=== PATIENT | male | born 2000 | race Caucasian/White ===

== ENCOUNTER 2019-02-07 17:23 | Emergency (ER) | payer SELFPAY ==
[~2019-02-07] VITALS: Ht 177.8 cm; Wt 95.3 kg
[2019-02-07] MEDS ORDERED: RT-ALBUTEROL/IPRATROPIUM 3 ML (DUONEB) VIAL INH ONE (18:15)
--- NOTE | 2019-02-07 18:15 | ED Cough/URI ---
General Chief Complaint: Respiratory Problems Stated Complaint: VOMITING, FATIGUE, DIZZY, HEAVY CHEST Nursing Triage Note: PT CO OF HX ASTHMA HAS BEEN SICK SINCE SINCE 11/24/18, COUGHING UP YELLOW PHELGM. SOMETIMES HAS SOA.DENIES FEVER STATES TAKES ALBUTEROL NEB AT HOME COUPLE TIMES A DAY Sepsis Screen: No Definite Risk Source: patient Exam Limitations: no limitations History of Present Illness Date Seen by Provider: Feb 07, 2019 Time Seen by Provider: 18:13 Initial Comments To ER with about a 1 month history of intermittent chest pains, shortness of breath, fatigue. Has asthma, takes albuterol nebulizer at home twice a day. Sometimes has a cough productive of blood-tinged sputum Timing/Duration: constant Severity/Quality: productive cough Associated Symptoms: cough, shortness of breath Allergies and Home Medications Allergies Coded Allergies: No Known Drug Allergies (Unverified , 02/07/19) Patient Home Medication List Home Medication List Reviewed: Yes Review of Systems Review of Systems Constitutional: see HPI EENTM: see HPI Respiratory: see HPI, cough Cardiovascular: no symptoms reported Genitourinary: no symptoms reported Musculoskeletal: no symptoms reported Skin: no symptoms reported Psychiatric/Neurological: No Symptoms Reported Hematologic/Lymphatic: No Symptoms Reported Past Cwieepb-Ynqxfc-Oqjlzw Hx Patient Social History Alcohol Use: Denies Use Recreational Drug Use: No Smoking Status: Current Everyday Smoker Type Used: Cigarettes Recent Foreign Travel: No Contact w/Someone Who Travel: No Recent Infectious Disease Expo: No Recent Hopitalizations: No Seasonal Allergies Seasonal Allergies: No Past Medical History Surgeries: Yes Appendectomy Respiratory: Yes Asthma Integumentary: No Physical Exam Vital Signs - First Documented 02/07/19 02/07/19 17:30 18:33 Temp 97.9 Pulse 85 Resp 18 B/P (MAP) 124/79 (94) Pulse Ox 97 O2 Delivery Room Air Capillary Refill : Less Than 3 Seconds Height: 5'10.00" Weight: 210lbs. oz. 95.787037tx; BMI Method:Stated General Appearance: WD/WN, no apparent distress Eyes: Bilateral Eye Normal Inspection, Bilateral Eye PERRL, Bilateral Eye EOMI HEENT: PERRL/EOMI, normal ENT inspection, other (tonsillar enlargement) Neck: non-tender, full range of motion; No lymphadenopathy (R), No lymphaden opathy (L) Respiratory: no respiratory distress, no accessory muscle use Cardiovascular: regular rate, rhythm, no murmur Gastrointestinal: normal bowel sounds, non tender, soft Neurologic/Psychiatric: alert, normal mood/affect, oriented x 3 Skin: normal color, warm/dry Progress/Results/Core Measures Suspected Sepsis Recent Fever Within 48 Hours: No Infection Criteria Present: None New/Unexplained Altered Menta: No Sepsis Screen: No Definite Risk SIRS Temperature:97.9 Pulse: 85 Respiratory Rate: 18 Laboratory Tests 02/07/19 18:25: White Blood Count 6.5 Blood Pressure 124 /79 Mean: 94 Laboratory Tests 02/07/19 18:25: Creatinine 1.10, Platelet Count 299, Total Bilirubin 0.3 Results/Orders Lab Results Laboratory Tests Test 02/07/19 18:25 Range/Units White Blood Count 6.5 4.3-11.0 10^3/uL Red Blood Count 5.49 4.35-5.85 10^6/uL Hemoglobin 15.8 13.3-17.7 G/DL Hematocrit 45 40-54 % Mean Corpuscular Volume 82 80-99 FL Mean Corpuscular Hemoglobin 29 25-34 PG Mean Corpuscular Hemoglobin Concent 35 32-36 G/DL Red Cell Distribution Width 13.6 10.0-14.5 % Platelet Count 299 130-400 10^3/uL Mean Platelet Volume 10.8 H 7.4-10.4 FL Neutrophils (%) (Auto) 60 42-75 % Lymphocytes (%) (Auto) 20 12-44 % Monocytes (%) (Auto) 15 H 0-12 % Eosinophils (%) (Auto) 5 0-10 % Basophils (%) (Auto) 1 0-10 % Neutrophils # (Auto) 3.9 1.8-7.8 X 10^3 Lymphocytes # (Auto) 1.3 1.0-4.0 X 10^3 Monocytes # (Auto) 1.0 0.0-1.0 X 10^3 Eosinophils # (Auto) 0.3 0.0-0.3 10^3/uL Basophils # (Auto) 0.0 0.0-0.1 10^3/uL D-Dimer < 0.27 0.00-0.49 UG/ML Sodium Level 141 135-145 MMOL/L Potassium Level 4.0 3.6-5.0 MMOL/L Chloride Level 108 H 98-107 MMOL/L Carbon Dioxide Level 21 21-32 MMOL/L Anion Gap 12 5-14 MMOL/L Blood Urea Nitrogen 13 7-18 MG/DL Creatinine 1.10 0.60-1.30 MG/DL Estimat Glomerular Filtration Rate > 60 BUN/Creatinine Ratio 12 Glucose Level 83 70-105 MG/DL Calcium Level 9.3 8.5-10.1 MG/DL Corrected Calcium 9.0 8.5-10.1 MG/DL Magnesium Level 2.1 1.6-2.4 MG/DL Total Bilirubin 0.3 0.1-1.0 MG/DL Aspartate Amino Transf (AST/SGOT) 18 5-34 U/L Alanine Aminotransferase (ALT/SGPT) 26 0-55 U/L Alkaline Phosphatase 60 40-136 U/L C-Reactive Protein High Sensitivity 1.00 H 0.00-0.50 MG/DL Total Protein 7.0 6.4-8.2 GM/DL Albumin 4.4 3.2-4.5 GM/DL My Orders Orders - NETO BARRIOS APRN Cbc With Automated Diff (02/07/19 18:06) Comprehensive Metabolic Panel (02/07/19 18:06) Fibrin Degradation Products (02/07/19 18:06) Ekg Tracing (02/07/19 18:06) Magnesium (02/07/19 18:06) Chest Pa/Lat (2 View) (02/07/19 18:06) Hs C Reactive Protein (02/07/19 18:06) Albuterol/Ipra Inhalation Soln (Duoneb I (02/07/19 18:15) Svn Small Volume Nebulizer (02/07/19 18:06) Medications Given in ED Current Medications Medications Dose Ordered Sig/Annie Route Start Time Stop Time Status Last Admin Dose Admin Albuterol/ Ipratropium 3 ml ONCE ONCE INH 02/07/19 18:15 02/07/19 18:16 DC 02/07/19 18:13 3 ML Vital Signs/I&O 02/07/19 02/07/19 17:30 18:33 Temp 97.9 Pulse 85 Resp 18 B/P (MAP) 124/79 (94) Pulse Ox 97 96 O2 Delivery Room Air Capillary Refill : Less Than 3 Seconds Blood Pressure Mean: 94 Departure Impression Primary Impression: Asthma Qualified Codes: J45.909 - Unspecified asthma, uncomplicated Additional Impression: Bronchitis Disposition: HOME, SELF-CARE Condition: Stable Departure-Patient Inst. Decision time for Depature: 18:58 Referrals: NO,LOCAL PHYSICIAN (PCP/Family) Primary Care Physician Patient Instructions: Asthma, Adult (DC), Acute Bronchitis Add. Discharge Instructions: 1. Return to ER for any concerns 2. Steroids antibiotics as directed 3. Follow-up with your doctor next week 4. All discharge instructions reviewed with patient and/or family. Voiced under standing. Scripts Azithromycin (Azithromycin) 250 Mg Tablet 250 MG PO DAILY, #4 TAB 0 Refills Prov: NETO BARRIOS APRN 02/07/19 Azithromycin (Azithromycin) 250 Mg Tablet 250 MG PO UD, #6 TAB TAKE 2 TABLETS ON DAY ONE THEN TAKE 1 TABLET DAILY FOR FOUR MORE DAYS Prov: NETO BARRIOS APRN 02/07/19 NETO BARRIOS APRN Feb 07, 2019 18:15
[2019-02-07 18:30] LABS: BASOPHILS % (AUTO) 1 % (0-10); EOSINOPHILS # (AUTO) 0.3 10^3/uL (0.0-0.3); EOSINOPHILS % (AUTO) 5 % (0-10); HEMATOCRIT 45 % (40-54); HEMOGLOBIN 15.8 G/DL (13.3-17.7); LYMPHOCYTES # (AUTO) 1.3 X 10^3 (1.0-4.0); LYMPHOCYTES % (AUTO) 20 % (12-44); MEAN CORPUSCULAR HEMOGLOBIN 29 PG (25-34); MEAN CORPUSCULAR HGB CONC 35 G/DL (32-36); MEAN CORPUSCULAR VOLUME 82 FL (80-99); MEAN PLATELET VOLUME 10.8 FL (7.4-10.4); MONOCYTES % (AUTO) 15 % (0-12); NEUTROPHILS # (AUTO) 3.9 X 10^3 (1.8-7.8); NEUTROPHILS % (AUTO) 60 % (42-75); PLATELET COUNT 299 10^3/uL (130-400); RED CELL DISTRIBUTION WIDTH 13.6 % (10.0-14.5); WHITE BLOOD COUNT 6.5 10^3/uL (4.3-11.0)
--- NOTE | 2019-02-07 18:49 | Diagnostic Imaging Report ---
INDICATION: Intermittent chest pain. Nausea and vomiting. FINDINGS: The lungs appear clear without focal infiltrate or consolidation. There is no effusion. There is no pneumothorax. Heart size and mediastinal contours are appropriate. The pulmonary vascularity appears normal. There is no acute or suspicious osseous abnormality. IMPRESSION: 1. No radiographic evidence of an acute cardiopulmonary process Dictated by: Dictated on workstation # [id number]
[2019-02-07 18:53] LABS: ALANINE AMINOTRANSFERASE 26 U/L (0-55); ALBUMIN 4.4 GM/DL (3.2-4.5); ALKALINE PHOSPHATASE 60 U/L (40-136); BILIRUBIN,TOTAL 0.3 MG/DL (0.1-1.0); BUN/CREATININE RATIO 12; CALCIUM 9.3 MG/DL (8.5-10.1); CARBON DIOXIDE 21 MMOL/L (21-32); CHLORIDE 108 MMOL/L (98-107); GFR ESTIMATED > 60; GLUCOSE 83 MG/DL (70-105); MAGNESIUM 2.1 MG/DL (1.6-2.4); SODIUM 141 MMOL/L (135-145)
[2019-02-07] MEDS ORDERED: AZIT250T12 PO ×2 (18:59)
[2019-02-07] MEDS ORDERED: predniSONE 20 MG TAB PO ONE (19:00)
[2019-02-07] MEDS ORDERED: AZITHROMYCIN 250 MG TAB (ZITHROMAX) PO SCH (19:00)
[2019-02-07 19:04] VITALS: BP 127/81
== END 2019-02-07 19:04 | disposition home or self-care (01) ==
LOC: ER 17:27
DX: J45.909 Unspecified asthma, uncomplicated (principal); F17.210 Nicotine dependence, cigarettes, uncomplicated; Z90.49 Acquired absence of other specified parts of digestive tract
CPT/HCPCS: 36415; 71046; 80053; 83735; 85025; 85379; 86141; 93005; 94640

== ENCOUNTER 2019-03-16 02:16 | Emergency (ER) | payer SELFPAY ==
[~2019-03-16] VITALS: Ht 175 cm; Wt 84.0 kg
[~2019-03-16 02:16] MED LIST: AZIT250T12 PO
[2019-03-16] MEDS ORDERED: RT-ALBUTEROL SULF 2.5 MG/3 ML PRE-MIX VIAL INH STA (03:11)
[2019-03-16] MEDS ORDERED: methylPREDNISolone 125 MG (Solu-MEDROL) VIAL IV STA (03:11)
[2019-03-16] MEDS ORDERED: DEXAMETHASONE 4 MG/ML SDV (DECADRON) ONE (03:14)
[2019-03-16] MEDS ORDERED: RT-ALBUTEROL/IPRATROPIUM 3 ML (DUONEB) VIAL ONE (03:14)
[2019-03-16] MEDS ORDERED: RT-ALBUTEROL SULF 2.5 MG/3 ML PRE-MIX VIAL ONE (03:14)
[2019-03-16] MEDS ORDERED: DEXAMETHASONE 4 MG/ML SDV (DECADRON) IH ONE (03:15)
[2019-03-16] MEDS ORDERED: RT-ALBUTEROL/IPRATROPIUM 3 ML (DUONEB) VIAL INH ONE (03:15)
[2019-03-16 03:17] LABS: BASOPHILS # (AUTO) 0.1 10^3/uL (0.0-0.1); BASOPHILS % (AUTO) 1 % (0-10); EOSINOPHILS # (AUTO) 0.5 10^3/uL (0.0-0.3); EOSINOPHILS % (AUTO) 5 % (0-10); HEMATOCRIT 47 % (40-54); HEMOGLOBIN 16.6 G/DL (13.3-17.7); LYMPHOCYTES % (AUTO) 19 % (12-44); MEAN CORPUSCULAR HEMOGLOBIN 28 PG (25-34); MEAN CORPUSCULAR HGB CONC 35 G/DL (32-36); MEAN CORPUSCULAR VOLUME 80 FL (80-99); MEAN PLATELET VOLUME 10.4 FL (7.4-10.4); MONOCYTES # (AUTO) 0.9 X 10^3 (0.0-1.0); MONOCYTES % (AUTO) 8 % (0-12); NEUTROPHILS # (AUTO) 7.3 X 10^3 (1.8-7.8); NEUTROPHILS % (AUTO) 68 % (42-75); PLATELET COUNT 343 10^3/uL (130-400); RED CELL DISTRIBUTION WIDTH 13.6 % (10.0-14.5); WHITE BLOOD COUNT 10.7 10^3/uL (4.3-11.0)
[2019-03-16 03:31] LABS: ALANINE AMINOTRANSFERASE 32 U/L (0-55); ALBUMIN 4.3 GM/DL (3.2-4.5); ALKALINE PHOSPHATASE 75 U/L (40-136); BILIRUBIN,TOTAL 0.3 MG/DL (0.1-1.0); BUN/CREATININE RATIO 10; CALCIUM 9.5 MG/DL (8.5-10.1); CARBON DIOXIDE 22 MMOL/L (21-32); CHLORIDE 106 MMOL/L (98-107); CREATININE SERUM 1.14 MG/DL (0.60-1.30); GFR ESTIMATED > 60; GLUCOSE 80 MG/DL (70-105); POTASSIUM 3.9 MMOL/L (3.6-5.0); SODIUM 141 MMOL/L (135-145); TOTAL PROTEIN 7.1 GM/DL (6.4-8.2)
[2019-03-16] MEDS ORDERED: PRED5TAB PO (04:27)
[2019-03-16] MEDS ORDERED: IPRA3AMP31 IH (04:27)
[2019-03-16] MEDS ORDERED: BUDE1AMP IH (04:27)
--- NOTE | 2019-03-16 04:28 | ED Respiratory ---
General Chief Complaint: Respiratory Problems Stated Complaint: SOA Nursing Triage Note: PT PRESENTS TO ROOM 9 FROM HOME C/O SOA W/ EXERTION THAT ONSET ONE MONTH AGO INTERMITTENTLY INCREASING IN SEVERITY. PT STATES HE IS A LONG STANDING ASTHMATIC, STATES HES BEEN USING HIS ALBUTEROL NEBULIZER EVERY TWO HOURS Source: patient History of Present Illness Date Seen by Provider: Mar 16, 2019 Time Seen by Provider: 02:48 Allergies and Home Medications Allergies Coded Allergies: No Known Drug Allergies (Unverified , 02/07/19) Home Medications Azithromycin 250 Mg Tablet, 250 MG PO UD TAKE 2 TABLETS ON DAY ONE THEN TAKE 1 TABLET DAILY FOR FOUR MORE DAYS Prescribed by: NETO BARRIOS on 02/07/191858 Azithromycin 250 Mg Tablet, 250 MG PO DAILY Prescribed by: NETO BARRIOS on 02/07/191858 Past Qpjdxar-Emrgqs-Nccteo Hx Patient Social History Alcohol Use: Denies Use Recreational Drug Use: No Smoking Status: Former Smoker Type Used: Cigarettes Former Smoker, Quit: Mar 13, 2019 2nd Hand Smoke Exposure: No Recent Foreign Travel: No Contact w/Someone Who Travel: No Recent Infectious Disease Expo: No Recent Hopitalizations: No Immunizations Up To Date Tetanus Booster (TDap): Unknown PED Vaccines UTD: Yes Seasonal Allergies Seasonal Allergies: No Past Medical History Surgeries: Yes Appendectomy Respiratory: Yes Asthma Integumentary: No Physical Exam Vital Signs - First Documented 03/16/19 02:44 Temp 37.5 Pulse 87 Resp 20 B/P (MAP) 135/96 (109) Pulse Ox 96 O2 Delivery Room Air Capillary Refill : Less Than 3 Seconds Height: 5'10.00" Weight: 210lbs. oz. 95.331155tz; 27.00 BMI Method:Stated Progress/Results/Core Measures Suspected Sepsis Recent Fever Within 48 Hours: No Infection Criteria Present: Suspected New Infection New/Unexplained Altered Menta: No Sepsis Screen: No Definite Risk SIRS Temperature: Pulse: 87 Respiratory Rate: 20 Laboratory Tests 03/16/19 03:02: White Blood Count 10.7 Blood Pressure 135 /96 Mean: 109 Laboratory Tests 03/16/19 03:02: Creatinine 1.14, Platelet Count 343, Total Bilirubin 0.3 Results/Orders Lab Results Laboratory Tests Test 03/16/19 03:02 Range/Units White Blood Count 10.7 4.3-11.0 10^3/uL Red Blood Count 5.90 H 4.35-5.85 10^6/uL Hemoglobin 16.6 13.3-17.7 G/DL Hematocrit 47 40-54 % Mean Corpuscular Volume 80 80-99 FL Mean Corpuscular Hemoglobin 28 25-34 PG Mean Corpuscular Hemoglobin Concent 35 32-36 G/DL Red Cell Distribution Width 13.6 10.0-14.5 % Platelet Count 343 130-400 10^3/uL Mean Platelet Volume 10.4 7.4-10.4 FL Neutrophils (%) (Auto) 68 42-75 % Lymphocytes (%) (Auto) 19 12-44 % Monocytes (%) (Auto) 8 0-12 % Eosinophils (%) (Auto) 5 0-10 % Basophils (%) (Auto) 1 0-10 % Neutrophils # (Auto) 7.3 1.8-7.8 X 10^3 Lymphocytes # (Auto) 2.0 1.0-4.0 X 10^3 Monocytes # (Auto) 0.9 0.0-1.0 X 10^3 Eosinophils # (Auto) 0.5 H 0.0-0.3 10^3/uL Basophils # (Auto) 0.1 0.0-0.1 10^3/uL Sodium Level 141 135-145 MMOL/L Potassium Level 3.9 3.6-5.0 MMOL/L Chloride Level 106 98-107 MMOL/L Carbon Dioxide Level 22 21-32 MMOL/L Anion Gap 13 5-14 MMOL/L Blood Urea Nitrogen 11 7-18 MG/DL Creatinine 1.14 0.60-1.30 MG/DL Estimat Glomerular Filtration Rate > 60 BUN/Creatinine Ratio 10 Glucose Level 80 70-105 MG/DL Calcium Level 9.5 8.5-10.1 MG/DL Corrected Calcium 9.3 8.5-10.1 MG/DL Magnesium Level 2.0 1.6-2.4 MG/DL Total Bilirubin 0.3 0.1-1.0 MG/DL Aspartate Amino Transf (AST/SGOT) 20 5-34 U/L Alanine Aminotransferase (ALT/SGPT) 32 0-55 U/L Alkaline Phosphatase 75 40-136 U/L Total Protein 7.1 6.4-8.2 GM/DL Albumin 4.3 3.2-4.5 GM/DL Serum Alcohol < 10 <10 MG/DL Micro Results Microbiology 03/16/19 Influenza Types A,B Antigen (MARYLIN) - Final, Complete My Orders Orders - BRENT EPPS DO Ed Iv/Invasive Line Start (03/16/19 03:11) Monitor-Rhythm Ecg Trace Only (03/16/19 03:11) Alcohol (03/16/19 03:11) Cbc With Automated Diff (03/16/19 03:11) Comprehensive Metabolic Panel (03/16/19 03:11) Drug Screen Stat (Urine) (03/16/19 03:11) Magnesium (03/16/19 03:11) Ua Culture If Indicated (03/16/19 03:11) Influenza A And B Antigens (03/16/19 03:11) Chest Pa/Lat (2 View) (03/16/19 03:11) Albuterol Pre-Mix Nebs (Rt) (Proventil (03/16/19 03:11) Albuterol/Ipra Inhalation Soln (Duoneb I (03/16/19 03:15) Dexamethasone Injection (Decadron Inject (03/16/19 03:15) Rt Request For Service (03/16/19 03:11) Methylprednisolone Sod Succ (Solu-Medrol (03/16/19 03:11) Svn Small Volume Nebulizer (03/16/19 03:11) Svn Small Volume Nebulizer (03/16/19 03:11) Dexamethasone Injection (Decadron Inject (03/16/19 03:14) Albuterol Pre-Mix Nebs (Rt) (Proventil (03/16/19 03:14) Albuterol/Ipra Inhalation Soln (Duoneb I (03/16/19 03:14) Medications Given in ED Current Medications Medications Dose Ordered Sig/Annie Route Start Time Stop Time Status Last Admin Dose Admin Albuterol/ Ipratropium 3 ml ONCE ONCE INH 03/16/19 03:15 03/16/19 03:16 DC 03/16/19 03:20 3 ML Dexamethasone Sodium Phosphate 20 mg ONCE ONCE IH 03/16/19 03:15 03/16/19 03:16 DC 03/16/19 03:20 20 MG Vital Signs/I&O 03/16/19 03/16/19 02:44 03:23 Temp 37.5 Pulse 87 Resp 20 B/P (MAP) 135/96 (109) Pulse Ox 96 95 O2 Delivery Room Air Room Air Capillary Refill : Less Than 3 Seconds Blood Pressure Mean: 109 Diagnostic Imaging Comments CXR--NO ACUTE PROCESS, PENDING RADIOLOGIST REVIEW Reviewed: Reviewed by Me Departure Impression Primary Impression: Asthma with acute exacerbation in adult Disposition: HOME, SELF-CARE Condition: Improved Departure-Patient Inst. Referrals: NEYMAR LICONA,LOCAL PHYSICIAN (PCP) Primary Care Physician Patient Instructions: Avoiding Asthma Triggers, Asthma, Adult (DC) Add. Discharge Instructions: USE YOUR DUO NEB BY NEBULIZER EVERY 4 HOURS NEEDED USE PULMICORT NEBULIZER TWICE A DAY EVERY DAY FOR ASTHMA PREVENTION/MAINTENANCE FOLLOW UP WITH LOCAL DRKennedi OF CHOICE THIS WEEK AND ESTABLISH CARE FOR PRIMARY CARE DRKennedi FOLLOW UP WITH DR. LICONA, TRANSPLANTER, FOR YOUR ASTHMA All discharge instructions reviewed with patient and/or family. Voiced understanding. 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
[2019-03-16 04:36] LABS: BILIRUBIN,URINE NEGATIVE (NEGATIVE); CLARITY,URINE CLEAR; COLOR,URINE YELLOW; GLUCOSE, URINE (UA) NEGATIVE (NEGATIVE); KETONES,URINE 1+ (NEGATIVE); LEUKOCYTE ESTERASE ,URINE NEGATIVE (NEGATIVE); NITRITE,URINE NEGATIVE (NEGATIVE); PH,URINE 6 (5-9); PROTEIN,URINE 1+ (NEGATIVE); UROBILINOGEN,URINE NORMAL (NORMAL)
[2019-03-16 04:50] LABS: AMPHETAMINE SCREEN, URINE NEGATIVE (NEGATIVE); BARBITURATE SCREEN URINE NEGATIVE (NEGATIVE); BENZODIAZEPINES SCREEN URINE NEGATIVE (NEGATIVE); CANNABINOID SCREEN, URINE NEGATIVE (NEGATIVE); COCAINE SCREEN URINE NEGATIVE (NEGATIVE); METHADONE STAT NEGATIVE (NEGATIVE); METHAMPHETAMINE SCREEN URINE S NEGATIVE (NEGATIVE); OPIATE SCREEN URINE NEGATIVE (NEGATIVE); OXYCODONE STAT NEGATIVE (NEGATIVE); PROPOXYPHENE STAT NEGATIVE (NEGATIVE); TRICYCLIC ANTIDEPRESSANTS SCRE NEGATIVE (NEGATIVE)
[2019-03-16 05:00] LABS: BACTERIA,URINE FEW /HPF
[2019-03-16 05:03] VITALS: BP 130/67
--- NOTE | 2019-03-16 06:23 | Diagnostic Imaging Report ---
INDICATION: Chest pain and shortness of breath COMPARISON: 02/07/2019 FINDINGS: Frontal and lateral views of the chest demonstrate clear lungs bilaterally. The heart is normal. There is no pneumothorax. The osseous structures are normal. IMPRESSION: Negative chest Dictated by: Dictated on workstation # [id number]
== END 2019-03-16 05:03 | disposition home or self-care (01) ==
LOC: EDUNIT# 02:16 → ER 02:18
DX: J45.901 Unspecified asthma with (acute) exacerbation (principal); Z87.891 Personal history of nicotine dependence; Z90.49 Acquired absence of other specified parts of digestive tract
CPT/HCPCS: 36415; 71046; 80053; 80306; 80320; 81000; 83735; 85025; 87804; 93041; 94640

== ENCOUNTER 2019-06-29 15:11 | Emergency (ER) | payer SELFPAY ==
[~2019-06-29] VITALS: Ht 177 cm; Wt 84.0 kg
[~2019-06-29 15:11] MED LIST changes: +BUDE1AMP IH; +IPRA3AMP31 IH; +PRED5TAB PO
[2019-06-29] MEDS ORDERED: RT-ALBUTEROL/IPRATROPIUM 3 ML (DUONEB) VIAL INH ONE (15:45)
[2019-06-29] MEDS ORDERED: RX-ALBUTEROL INHALER (PROAIR) 8.5 GM IH STA (16:08)
[2019-06-29] MEDS ORDERED: IBUPROFEN 800 MG (MOTRIN) TAB PO STA (16:23)
--- NOTE | 2019-06-29 16:29 | ED Cough/URI ---
General Chief Complaint: Cough/Cold/Flu Symptoms Stated Complaint: FEVER/THROAT DISCOMFORT Nursing Triage Note: PT PRESENTS TO TRIAGE C/O COUGH AND THROAT DISCOMFORT WITH SWALLOWING THAT ONSET EARLY YESTERDAY. PT STATES HE HAD A FEVER TODAY, LAST TYLENOL DOSE AT 12:30. PT VERBALIZES A HX OF ASTMA, NOTED INCREASED WORK OF BREATHING ON EXAM. PT STATES HE USED A BREATHING TX AROUND 1330 TODAY. Sepsis Screen: No Definite Risk Source: patient Exam Limitations: no limitations History of Present Illness Date Seen by Provider: Jun 29, 2019 Time Seen by Provider: 16:12 Initial Comments Here with report of cough and congestion as well as sore throat that started yesterday. Had a fever of 103 today. He did take Tylenol this afternoon and that helped some. Also complains of body aches to the large muscle group and back. Had diarrheal illness several days ago that has resolved. Does have history of asthma but does not have an inhaler. He does smoke cigarettes. He had to leave work today because he was feeling bad. Timing/Duration: yesterday Severity/Quality: mild, dry cough Prior Episodes/Possible Cause: occasional episodes Modifying Factors: Improves With Rest Associated Symptoms: cough, fever/chills, muscle aches, nasal congestion, nasal drainage, shortness of breath, sore throat, wheezing Allergies and Home Medications Allergies Coded Allergies: No Known Drug Allergies (Unverified , 02/07/19) Home Medications Azithromycin 250 Mg Tablet, 250 MG PO UD TAKE 2 TABLETS ON DAY ONE THEN TAKE 1 TABLET DAILY FOR FOUR MORE DAYS Prescribed by: NETO BARRIOS on 02/07/191858 Azithromycin 250 Mg Tablet, 250 MG PO DAILY Prescribed by: NETO BARRIOS on 02/07/191858 Budesonide 1 Mg/2 Ml Ampul.neb, 1 MG IH BID Prescribed by: BRENT EPPS on 03/16/19426 Ipratropium/Albuterol Sulfate 3 Ml Ampul.neb, 3 ML IH Q4H PRN for SHORTNESS OF BREATH Prescribed by: BRENT EPPS on 03/16/19426 Prednisone 5 Mg Tablet, 5 MG PO UD 12 PILLS DAY 1, THEN DECREASE BY 1 PILL A DAY UNTIL GONE Prescribed by: BRENT EPPS on 03/16/19426 Patient Home Medication List Home Medication List Reviewed: Yes Review of Systems Review of Systems Constitutional: see HPI; No chills; fever EENTM: see HPI Respiratory: cough, short of breath, wheezing Cardiovascular: no symptoms reported Gastrointestinal: no symptoms reported Genitourinary: no symptoms reported Musculoskeletal: see HPI, muscle pain; No muscle weakness Skin: no symptoms reported Past Waqdmmx-Qkxydc-Fhthza Hx Past Med/Social Hx: Reviewed Nursing Past Med/Soc Hx Patient Social History Alcohol Use: Denies Use Recreational Drug Use: No Type Used: Cigarettes Former Smoker, Quit: Mar 13, 2019 2nd Hand Smoke Exposure: No Recent Foreign Travel: No Contact w/Someone Who Travel: No Recent Infectious Disease Expo: No Recent Hopitalizations: No Physical Abuse: No Sexual Abuse: No Mistreated: No Fear: No Immunizations Up To Date Tetanus Booster (TDap): Unknown PED Vaccines UTD: Yes Seasonal Allergies Seasonal Allergies: No Past Medical History Surgeries: Yes Appendectomy Respiratory: Yes Asthma Cardiac: No Neurological: No Reproductive Disorders: No Genitourinary: No Gastrointestinal: No Musculoskeletal: No Endocrine: No HEENT: No Cancer: No Psychosocial: No Integumentary: No Blood Disorders: No Family Medical History Reviewed Nursing Family Hx Physical Exam Vital Signs - First Documented 06/29/19 15:31 Temp 36.8 Pulse 90 Resp 18 B/P (MAP) 123/78 (93) Pulse Ox 96 O2 Delivery Room Air Capillary Refill : Less Than 3 Seconds Height: 5'10.00" Weight: 210lbs. oz. 95.943479ke; 26.00 BMI Method:Stated General Appearance: WD/WN, no apparent distress HEENT: PERRL/EOMI, TMs normal, pharyngeal erythema (cobblestoning), other (moderate clear rhinorrhea and erythema) Neck: full range of motion, supple, lymphadenopathy (R), lymphadenopathy (L) Respiratory: no accessory muscle use, wheezing, expiration Cardiovascular: regular rate, rhythm, no murmur Gastrointestinal: non tender, soft Neurologic/Psychiatric: alert, oriented x 3 Skin: normal color, warm/dry Progress/Results/Core Measures Suspected Sepsis Recent Fever Within 48 Hours: Yes Infection Criteria Present: Suspected New Infection New/Unexplained Altered Menta: No Sepsis Screen: No Definite Risk SIRS Temperature: Pulse: 90 Respiratory Rate: 18 Blood Pressure 123 /78 Mean: 93 Results/Orders Lab Results Laboratory Tests Test 06/29/19 15:45 Range/Units Group A Streptococcus Screen NEGATIVE NEGATIVE Micro Results Microbiology 1/27/20 Influenza Types A,B Antigen (MARYLIN) - Final, Complete My Orders Orders - BINDU MORE MD Motrin 800 Mg Po (06/29/19 16:23) Medications Given in ED Current Medications Medications Dose Ordered Sig/Annie Route Start Time Stop Time Status Last Admin Dose Admin Albuterol/ Ipratropium 3 ml ONCE ONCE INH 06/29/19 15:45 06/29/19 15:46 DC 06/29/19 16:05 3 ML Vital Signs/I&O 06/29/19 06/29/19 06/29/19 15:31 15:54 16:05 Temp 36.8 Pulse 90 Resp 18 B/P (MAP) 123/78 (93) Pulse Ox 96 94 O2 Delivery Room Air Room Air Room Air Capillary Refill : Less Than 3 Seconds Blood Pressure Mean: 93 Progress Note : Progress Note Seen and evaluated. Albuterol metered-dose inhaler given and 2 puffs given. This did resolve his wheezing. Ibuprofen 800 mg by mouth given. Influenza and rapid strep screen ordered and both were negative. Discharged home with return precautions. Patient verbalize understanding instructions and agreement with plan Departure Impression Primary Impression: Upper respiratory infection Qualified Codes: J06.9 - Acute upper respiratory infection, unspecified Additional Impression: Bronchitis Disposition: 01 HOME, SELF-CARE Condition: Improved Departure-Patient Inst. Decision time for Depature: 16:30 Referrals: NO,LOCAL PHYSICIAN (PCP/Family) Primary Care Physician Patient Instructions: Viral Upper Respiratory Infection, Adult (DC), Fever, Adult (DC), Acute Bronchitis, Adult (DC) Add. Discharge Instructions: All discharge instructions reviewed with patient and/or family. Voiced understanding. You may take Tylenol/acetaminophen 1000 mg every 8 hours as needed for fever or pain. You may take ibuprofen 600 mg every 8 hours as needed for fever or pain. You may use Afrin nasal spray or the generic, 12 hour relief, 2 sprays to each nostril twice daily for 3 days only and then stop. Do not use more than 3 days. Follow-up with your DrKennedi in a few days for recheck. Drink plenty of fluids. Return for worse pain, fever, vomiting, weakness, breathing problems or other concerns as needed. You should quit smoking. Work/School Note: Work Release Form Date Seen in the Emergency Department: Jun 29, 2019 Return to Work: Jul 01, 2019 Restrictions: Return-No Fever (24hrs) BINDU MORE MD Jun 29, 2019 16:29
[2019-06-29 16:49] VITALS: BP 123/78
== END 2019-06-29 16:50 | disposition home or self-care (01) ==
LOC: EDUNIT# 15:11 → ER 15:12
DX: J06.9 Acute upper respiratory infection, unspecified (principal); J40 Bronchitis, not specified as acute or chronic; F17.210 Nicotine dependence, cigarettes, uncomplicated; Z90.89 Acquired absence of other organs
CPT/HCPCS: 87430; 87804; 94640

== ENCOUNTER 2019-08-12 19:55 | Emergency (ER) | payer SELFPAY ==
[~2019-08-12] VITALS: Ht 177.8 cm; Wt 77.1 kg
[2019-08-12 20:06] VITALS: BP 122/70
[2019-08-12] MEDS ORDERED: AMOX-358 PO (20:23)
[2019-08-12] MEDS ORDERED: TRIA10.8 NS (20:23)
--- NOTE | 2019-08-12 20:23 | ED General ---
General Chief Complaint: General Problems/Pain Stated Complaint: MIGRAINES Nursing Triage Note: Pt amb to triage with c/o sinus pressure et headache. Pt reports onset of symptoms to be approx x2wks with increase in severity on this day. Pt denies cough, congestion, fever, or chills. A&OX4. Nursing Sepsis Screen: No Definite Risk Source of Information: Patient Exam Limitations: No Limitations History of Present Illness Date Seen by Provider: Aug 12, 2019 Time Seen by Provider: 20:20 Initial Comments 2 week history of pressure and pain between his eyes, nasal congestion with rhinorrhea/postnasal drip. No fevers or chills. Severity: Moderate Associated Systoms: Headaches Allergies and Home Medications Allergies Coded Allergies: fluticasone (Verified Allergy, Unknown, 08/12/19) salmeterol (Verified Allergy, Unknown, 08/12/19) Home Medications Amoxicillin/Potassium Clav 1 Each Tablet, 1 EACH PO BID Prescribed by: NETO BARRIOS on 08/12/192022 Azithromycin 250 Mg Tablet, 250 MG PO UD TAKE 2 TABLETS ON DAY ONE THEN TAKE 1 TABLET DAILY FOR FOUR MORE DAYS Prescribed by: NETO BARRIOS on 02/07/191858 Azithromycin 250 Mg Tablet, 250 MG PO DAILY Prescribed by: NETO BARRIOS on 02/07/191858 Budesonide 1 Mg/2 Ml Ampul.neb, 1 MG IH BID Prescribed by: BRENT EPPS on 03/16/19426 Ipratropium/Albuterol Sulfate 3 Ml Ampul.neb, 3 ML IH Q4H PRN for SHORTNESS OF BREATH Prescribed by: BRENT EPPS on 03/16/19426 Prednisone 5 Mg Tablet, 5 MG PO UD 12 PILLS DAY 1, THEN DECREASE BY 1 PILL A DAY UNTIL GONE Prescribed by: BRENT EPPS on 03/16/19426 Triamcinolone Acetonide 10.8 Ml [place], 2 SPRAY NS BID Prescribed by: NETO BARRIOS on 08/12/192022 Patient Home Medication List Home Medication List Reviewed: Yes Review of Systems Review of Systems Constitutional: see HPI EENTM: see HPI Respiratory: no symptoms reported Cardiovascular: no symptoms reported Genitourinary: no symptoms reported Musculoskeletal: no symptoms reported Skin: no symptoms reported Psychiatric/Neurological: No Symptoms Reported Hematologic/Lymphatic: No Symptoms Reported Past Qxvcfbw-Alatsx-Wzwihr Hx Patient Social History Alcohol Use: Denies Use Recreational Drug Use: No Smoking Status: Current Everyday Smoker Type Used: Cigarettes Former Smoker, Quit: Mar 13, 2019 2nd Hand Smoke Exposure: No Recent Foreign Travel: No Contact w/Someone Who Travel: No Recent Infectious Disease Expo: No Recent Hopitalizations: No Immunizations Up To Date Tetanus Booster (TDap): Unknown PED Vaccines UTD: Yes Seasonal Allergies Seasonal Allergies: No Past Medical History Surgeries: Yes Appendectomy Respiratory: Yes Asthma Cardiac: No Neurological: No Reproductive Disorders: No Genitourinary: No Gastrointestinal: No Musculoskeletal: No Endocrine: No HEENT: No Cancer: No Psychosocial: No Integumentary: No Blood Disorders: No Physical Exam Vital Signs Vital Signs - First Documented 08/12/19 20:06 Temp 36.9 Pulse 90 Resp 17 B/P (MAP) 122/70 (87) Pulse Ox 98 O2 Delivery Room Air Capillary Refill : Less Than 3 Seconds Height, Weight, BMI Height: 5'10.00" Weight: 210lbs. oz. 95.515106pi; 24.00 BMI Method:Stated General Appearance: No Apparent Distress, WD/WN Eyes: Bilateral Eye Normal Inspection, Bilateral Eye PERRL, Bilateral Eye EOMI HEENT: PERRL/EOMI, TMs Normal Neck: Full Range of Motion, Normal Inspection Respiratory: No Accessory Muscle Use, No Respiratory Distress Gastrointestinal: Non Tender, Soft Extremity: Normal Capillary Refill, Normal Inspection Neurologic/Psychiatric: Alert, Oriented x3 Skin: Normal Color, Warm/Dry Progress/Results/Core Measures Suspected Sepsis Recent Fever Within 48 Hours: No Infection Criteria Present: None New/Unexplained Altered Menta: No Sepsis Screen: No Definite Risk SIRS Temperature: Pulse: 90 Respiratory Rate: 17 Blood Pressure 122 /70 Mean: 87 Results/Orders My Orders Orders - NETO BARRIOS APRN Amoxicillin/Clavulanate Tablet (Augmenti (08/12/19 20:30) Vital Signs/I&O 08/12/19 20:06 Temp 36.9 Pulse 90 Resp 17 B/P (MAP) 122/70 (87) Pulse Ox 98 O2 Delivery Room Air Capillary Refill : Less Than 3 Seconds Blood Pressure Mean: 87 Departure Impression Primary Impression: Sinusitis Qualified Codes: J01.90 - Acute sinusitis, unspecified Disposition: 01 HOME, SELF-CARE Condition: Stable Departure-Patient Inst. Decision time for Depature: 20:21 Referrals: NO,LOCAL PHYSICIAN (PCP/Family) Primary Care Physician Patient Instructions: Sinusitis, Adult (DC) Add. Discharge Instructions: 1. Return to ER for any concerns 2. Follow-up with your doctor next week 3. Antibiotics as directed All discharge instructions reviewed with patient and/or family. Voiced understanding. Scripts Triamcinolone Acetonide (Nasacort) 10.8 Ml [place] 2 SPRAY NS BID, #1 SPRAY Prov: NETO BARRIOS APRN 08/12/19 Amoxicillin/Potassium Clav (Augmentin 875-125 Tablet) 1 Each Tablet 1 EACH PO BID, #14 TAB 0 Refills Prov: NETO BARRIOS APRN 08/12/19 Work/School Note: Work Release Form Date Seen in the Emergency Department: Aug 12, 2019 Return to Work: Aug 13, 2019 NETO BARRIOS APRN Aug 12, 2019 20:23
[2019-08-12] MEDS ORDERED: AUGMENTIN 875 MG TAB (AMOXICILLIN/CLAVULANATE) PO SCH (20:30)
--- OUTSIDE RECORDS SUMMARY | 2019-08-14 22:42 | XMS REPORT | Continuity of Care Document ---
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 concentration measurement (mass/volume) 35 g/dL 32-36 Automated erythrocyte distribution width ratio 13. 6 % 10.0- 14.5 Automated blood platelet count (count/volume) 343 10*3/uL 130-400 Automated blood platelet mean volume measurement 10.4 [foz_us] 7.4-10.4 Automated blood neutrophils/100 leukocytes 68 % 42-75 Automated blood lymphocytes/100 leukocytes 19 % 12-44 Blood monocytes/100 leukocytes 8 % 0-12 Automated blood eosinophils/100 leukocytes 5 % 0-10 Automated blood basophils/100 leukocytes 1 % 0-10 Blood neutrophils automated count (number/volume) 7.3 10*3 1.8-7.8 Blood lymphocytes automated count (number/volume) 2.0 10*3 1.0-4.0 Blood monocytes automated count (number/volume) 0. 9 10*3 0.0-1.0 Automated eosinophil count 0.5 10*3/uL 0 .0-0.3 Automated blood basophil count (count/volume) 0.1 10*3/uL 0.0-0.1 Comprehensive metabolic panel - 03/16/19 03:02 Serum or plasma sodium measurement (moles/volume) 141 mmol/L 135-145 Serum or plasma potassium measurement (moles/volume) 3.9 mmol/L 3.6-5.0 Serum or plasma chloride measurement (moles/volume) 106 mmol/L 98-107 Carbon dioxide 22 mmol/L 21-32 Serum or plasma anion gap determination (moles/volume) 13 mmol/L 5-14 Serum or plasma urea nitrogen measurement (mass/volume ) 11 mg/dL 7-18 Serum or plasma creatinine measurement (mass/volume) 1.14 mg/dL 0.60-1.30 Serum or plasma urea nitrogen/creatinine mass ratio 10 NRG Serum or plasma creatinine measurement w ith calculation of estimated glomerular filtration rate > NRG Serum or plasma glucose measurement (mass/volume) 80 mg/dL 70-105 Serum or plasma calcium measurement (mass/volume) 9.5 mg/dL 8.5-10.1 Serum or plasma total bilirubin measurement (mass/volu me) 0.3 mg/dL 0.1-1.0 Serum or plasma alkaline phosphatase jackelyn surement (enzymatic activity/volume) 75 U/L 40-136 Serum or plasma aspartate aminotransfera se measurement (enzymatic activity/volume) 20 U/L 5-34 Serum or plasma alanine aminotransferase measurement (enzymatic activity/volume) 32 U/L 0-55 Serum or plasma protein measurement (mass/volume) 7.1 g/dL 6.4-8.2 Serum or plasma albumin measurement (mass/volume) 4.3 g/dL 3.2-4.5 CALCIUM CORRECTED 9.3 mg/dL 8.5-10.1 Magnesium - 03/16/19 03:02 Magnesium 2.0 mg/dL 1.6-2.4 Serum or plasma ethanol measurement (mas s/volume) - 03/16/19 03:02 Serum or plasma ethanol measurement (mass/volume) < mg/dL <10 Influenza virus A and B antigen detectio n - 03/16/19 03:35 FLU RESULT NEGATIVE FOR INFLUENZA A AND B ANTIGENS BY IA NRG Urine drug screening test - 03/16/19 04: 20 Urine phencyclidine detection by screening method NEGATIVE NEGATIVE Urine benzodiazepines detection by screening method NEGATIVE NEGATIVE Urine cocaine detection NEGATIVE NEGATI VE Urine amphetamines detection by screening method N EGATIVE NEGATIVE Urine methamphetamine detection by screening method NEGATIVE NEGATIVE Urine cannabinoids detection by screening method N EGATIVE NEGATIVE Urine opiates detection by screening method NEGATI VE NEGATIVE Urine barbiturates detection NEGATIVE N EGATIVE Screening urine tricyclic antidepressants detection NEGATIVE NEGATIVE Urine methadone detection by screening method NEGA TIVE NEGATIVE Urine oxycodone detection NEGATIVE NEGA TIVE Urine propoxyphene detection NEGATIVE N EGATIVE Complete urinalysis with reflex to cultu re - 03/16/19 04:20 Urine color determination YELLOW NRG Urine clarity determination CLEAR NR G Urine pH measurement by test strip 6 5-9 Specific gravity of urine by test strip 1.020 1.016-1.022 Urine protein assay by test strip, semi-quantitative 1+ NEGATIVE Urine glucose detection by automated test strip NE GATIVE NEGATIVE Erythrocytes detection in urine sediment by light micr oscopy NEGATIVE NEGATIVE Urine ketones detection by automated test strip 1+ NEGATIVE Urine nitrite detection by test strip NEGATIVE NEGATIVE Urine total bilirubin detection by test strip NEGA TIVE NEGATIVE Urine urobilinogen measurement by automated test strip (mass/volume) NORMAL NORMAL Urine leukocyte esterase detection by dipstick NEG ATIVE NEGATIVE Automated urine sediment erythrocyte cou nt by microscopy (number/high power field) NONE NRG Automated urine sediment leukocyte count by microscopy (number/high power field) NONE NRG Bacteria detection in urine sediment by light microsco py FEW NRG Squamous epithelial cells detection in u rine sediment by light microscopy 2-5 NRG Crystals detection in urine sediment by light microsco py NONE NRG Casts detection in urine sediment by light microscopy NONE NRG Mucus detection in urine sediment by light microscopy MODERATE NRG Complete urinalysis with reflex to culture NO NRG Influenza virus A and B antigen detectio n - 06/29/19 15:35 FLU RESULT NEGATIVE FOR INFLUENZA A AND B ANTIGENS BY IA NRG Streptococcus pyogenes antigen detection - 06/29/19 15:45 Streptococcus pyogenes antigen detection NEGATIVE NEGATIVE Bacterial throat culture - 06/29/19 15:4 5 Bacterial throat culture NBS NRG Radiology Report from [id number] on 013 11:07:00 Final ReportADMITTING DIAGNOSIS: LT wrist pain LEFT WRIST PAIN, FALLWRIST COMPLETE(3+VWS) LT - 09[facility]10[facility] [facility] INDICATION: Left wrist trauma.EXAMINATION: Four views of the left wrist.FINDINGS: Examination of the left wrist fails to revealevidence of fracture, dislocation or other bony abnormality.IMPRESSION: Negative left wrist.Dictated on workstation # [id number] BY: MAXIME RIOS M.D., RADIOLOGISTELECTRONICALLY SIGNED BY: MAXIME RIOS M.D., RADIOLOGISTD Sep 10 2012 5:04PT MSK: Sep 11 2012 11:05AS Sep 11 2012 11:05A Radiology Report from [id number] on 013 21:43:00 Final ReportADMITTING DIAGNOSIS: right foot lac lacFOOT COMPLETE 3+ VWS RT - 11/30/2012 [facility] RESULT: INDICATION: Cut to the right foot.EXAMINATION: Three views of the right foot were obtained at 6:33p.m.FINDINGS: There appears to be a soft tissue defect along thedorsum of the foot at the level of the mid foot. No radiopaquesoft tissue foreign body is seen. Bony structures appear intact.No fractures are seen.IMPRESSION: Soft tissue defect. No acute bony abnormality orevidence of radiopaque foreign body is detected.Dictated on workstation # [id number] BY: STEPHANIE WATKINS M.D., RADIOLOGISTELECTRONICALLY SIGNED BY: STEPHANIE WATKINS M.D., RADIOLOGISTD Nov 30 2012 6:50PT PJE: Nov 30 2012 6:53PS Nov 30 2012 9:40P Radiology Report from [id number] on 013 12:04:00 Final ReportADMITTING DIAGNOSIS: asthma problems asthmaCHEST PA LAT - 02/24/2013 [facility] RESULT: INDICATION: AsthmaEXAMINATION: PA and lateral views of the chest.FINDINGS: The heart size and vascularity are normal. Lungs areclear. There is no effusion. There is no acute bony abnormality.IMPRESSION: No acute abnormality is seen.There is no change from 02/08/12.Dictated on workstation # [id number] BY: BRIGITTE WINN M.D., RADIOLOGISTELECTRONICALLY SIGNED BY: BRIGITTE WINN M.D., RADIOLOGISTD Feb 24 2013 10:25AT WILMER: Feb 24 2013 12:02PS Feb 24 2013 12:02P Radiology Report from [id number] on 014 13:34:00 Extracted from:Title :Progress/SOAP Not eType :Progress Note - GenericDate :04/02/2017 4:59:00 PMPatient:IDA DONOVAN BirthDate: 05/29/1938 Gender: MaleSUBJECTIVEHe feels better today and tolerates liquid diet.REVIEW OF SYSTEMSConstitutional: No fever, No chills.Respiratory: No shortness of breath, No cough, No wheezing.Cardiovascular: No chest pain, No palpitations.Gastrointestinal: No nausea, No vomiting, No diarrhea, No heartburn.Genitourinary: No dysuria, No urinary frequency, No urinary urgency.Musculoskeletal: No joint pain, No muscle pain.Neurologic: Alert and oriented X4.OBJECTIVEVITALS MEASUREMENTST: 36.4 Deg C (Oral) HR: 87 (Monitored) HR: 96 (Peripheral) RR: 18 BP: 174/76 SpO2: 99% WT:66.5 kgPHYSICAL EXAMGen: Alert and Gk6EYNHA: PERLAMouth: dry without lesionLungs: CTACV: RRR and pedal pulse 2/4Abdomen: soft + BS NTTPEXT: no C/C/ELAB RESULTSLABS (LAST FOUR CHARTED VALUES)WBC L 4.7 (APR 02) 5.3 (MAR 30) 7.0 (MAR 31) 7.6 (MAR 30)Hgb L 12.8 (APR 02) L 13.4 (MAR 30) 14.3 (MAR 31) 16.3 (MAR 30)Hct L 39.2 (APR 02) L 41.6 (MAR 30) 44.5 (MAR 31) 49.0 (MAR 30)Plt L 127 (APR 02) L 127 (MAR 30) L 140 (MAR 31) 185 (MAR 30)Na 140 (APR 02) 139 (MAR 30) 140 (MAR 31) 139 (MAR 30)K L 3.3 (APR 02) 3.9 (MAR 30) 3.8 (MAR 31) 3.9 (MAR 30)CO2 26 (APR 02) 25 (MAR 30) 29 (MAR 31) 28 (MAR 30)Cl 108 (APR 02) 105 (MAR 30) 105 (MAR 31) 100 (MAR 30)Cr 0.76 (APR 02) 0.88 (MAR 30) 0.91 (MAR 31) 0.95 (MAR 30)BUN 15 (APR 02) 15 (MAR 30) 13 (MAR 31) 12 (MAR 30)Glucose Random 87 (APR 02) 75 (MAR 30) 96 (MAR 31) H 124 (MAR 30)Mg 1.8 (APR 02) L 1.7 (MAR 30) 1.8 (MAR 31)Phos 2.5 (APR 02) 3.0 (MAR 30) 3.2 (MAR 31)Ca L 8.5 (APR 02) 8.7 (APR 01) 8.8 (MAR 31) 9.8 (MAR 30)DIAGNOSTIC RESULTSRadiology ResultsXR ABDOMEN SERIES W/ CHEST 1 VIEW03/31/17 10:50:10IMPRESSION: There are air-filled loops of large and small bowel. If there is abowel obstruction, it would be partial. This is an improvement from the CT from03/30/17.Dictated on workstation:[id number] By: Brigitte Natarajan MD XR SMALL BOWEL W/ SERIAL FILMS04/01/17 17:13:52IMPRESSION: Negative small bowel study.Tech Comments: Fluoroscopy time (in minutes): .2Dictated on workstation:[id number] By: Beto Velasco MDXR CHEST 1 VIEW FRONTAL03/30/17 16:26:37IMPRESSION: There is cardiomegaly with no failure. The chest is similar to aprior study from 11/07/2016.Dictated on workstation:[id number] By: Brigitte Natarajan MDCT ABDOMEN W/ + W/O PELVIS W/ + W/O CONT03/31/17 08:13:29IMPRESSION: Findings compatible with a high degree of small bowel obstruction.Nonobstructing renal stones.Tech Comments: IV Contrast Name: [id number] amount in mlX27s: 80Dictated on workstation:[id number] By: Almas Navarro DOMedications (11) ActiveScheduled: (4)losartan 50 mg tab 50 mg 1 tabs, Oral, Dailyocular lube 0.5% (Refresh Plus) opth soln gtts 0.4mL 1 drops, Eye-Both, Bedtime (once a day)pantoprazole 40 mg vial 40 mg 10 mL, IV Push, Dailypotassium chloride 20 mEq packet 20 mEq 1 packets, Oral, BIDWMContinuous: (0)PRN: (7)acetaminophen 325 mg tab 650 mg 2 tabs, Oral, s4svbsrsmbp carbonate 500 mg tab chew 1,000 mg 2 tabs, Chewed, Dailyclotrimazole-betamethasone 1%-0.05% top cream;15g 1 rebekah, Topical, DailyHYDROmorphone PF 1 mg/mL injection; 1 mL 0.5 mg 0.5 mL, IV Push, z1rfopopetwwo 15 mg/mL vial; 1 mL 15 mg 1 mL, IV Push, p1crpjvrqkyufbs 2 mg/mL vial; 2 mL 4 mg 2 mL, IV Push, h01rcvwwbpfuewmyr 4 mg tab dis 4 mg 1 tabs, Oral, OnceASSESSMENT/PLANHypertensionwill resume LosartanAbdominal pain, Abdominal pain2/2 SBO., improvedSmall bowel obstructionimprovedcontinue liquid diet and advance as tolerateVomitingresolvedHypokalemiawill replaceElectronically Signed on 04/02/2017 05:11 PM CDT Gabrielle Cabral MD Radiology Report from [facility] on 03/23/20 15:03:00 DIAGNOSTIC ANIBAL GING REPORT [facility] - [address] [place] [address] PHONE #: [phone] FAX #: [phone] Name: DAVE RICH Loc: [facility] Radiology No: : 2000 Age: 14 Sex: M Status: REG ER Unit No: [id number] Phys: Betty Toussaint APR Acct: [id number] Reason For Exam: weights fell on chest, pain Exam Date: 03/23/2015 EXAMS: CPT CODE: [id number] CHEST AP/PA LATERAL 28711 TIME OF STUDY: 03/23/2015 2:33 PM REASON FOR EXAM: Weights fell on chest. COMPARISON: None FINDINGS: PA and lateral upright views of the chest were obtained. Lungs: Lung volume is normal. No pulmonary nodule, mass, or consolidation is present. Pleura: No pleural effusion or pneumothorax. Heart and Mediastinum: Normal cardiomediastinal silhouette and great vessels. Normal pulmonary vascularity. Bones: No acute regional skeletal abnormality. IMPRESSION: 1. No acute pleural-parenchymal process. I have personally reviewed these images and corrected the resident physician's interpretation if necessary. at 5621 RESIDENT: ROMY MONTGOMERY MD Reported and signed by: TAMRA MATHIS MD CC: Technologist: GEO SKELTON Transcribed Date/Time: 03/23/2015 (0425)Counc[employer]or [employer]: [id number] Printed Date/Time: 03/23/2015 (1791) BATCH NO: N/A PAGE 1 Signed Report Encounters ACCT No. Visit Date/Time Discharge Status Pt. Type Provider Facility Loc./Unit Complaint [id number] 04/05/2019 19:29:00 04/05/2019 20:17: 00 DIS Emergency REYES MENDIETA [facility] 025 RIGHT SIDE PAIN [id number] 12/31/2018 21:05:00 12/31/2018 21:50: 00 DIS Emergency [facility] 025 PT IS HAVING BACK PAIN [id number] 12/25/2018 16:49:00 12/25/2018 19:40: 00 [facility] INGEST PILLS [id number] 11/06/2018 11:06:00 11/06/2018 23:59: 59 [facility] Outpatient EMILY DAWSON HERNÁN [id number] 10/26/2018 17:46:00 10/26/2018 21:17: 00 DIS Emergency GILMAN, HYACINTHCarroll MALONE [facility] 025 [facility] [id number] 10/21/2018 10:58:00 10/21/2018 10:58: 00 DIS Outpatient DAWSON DIAZ II [id number] 10/08/2018 20:06:00 10/08/2018 20:50: 00 DIS Emergency [facility] 025 FELL AT WORK HURT HIS MANUEL K [id number] 05/25/2018 02:52:00 05/25/2018 03:35: 00 DIS Emergency DAWSON DIAZ II [facility] 025 ASTHMA ATTACK [id number] 02/01/2018 18:42:00 02/01/2018 19:41: 00 DIS Emergency HYACINTH GILMAN [facility] 025 SMASHED FINGER [id number] 12/28/2017 10:34:00 12/28/2017 11:10: 00 DIS Emergency ROXANNE, KALYAN [facility] 025 PAIN AT TAILBONE [id number] 12/25/2018 16:49:00 Document Registration [id number] 10/26/2018 17:46:00 Document Registration [id number] 10/21/2018 10:58:00 Document Registration [id number] 10/12/2018 01:10:00 019 01:33:00 DIS Emergency Ghanshyam Lares DO [facility] W.EDS [id number] 01/09/2017 16:44:00 017 17:18:00 DIS Emergency Alvina BATISTA, Aurea Schafer [facility] W.EDW [id number] 12/21/2016 18:17:00 017 18:53:00 DIS Emergency Dinh Saucedo DO [facility] W.EDW [id number] 10/25/2015 12:15:00 016 13:14:00 DIS Emergency Renée BATISTA, Marcos Marks [facility] W.EDW [id number] 09/12/2015 18:53:00 016 20:50:00 DIS Emergency Samina BATISTA, Maycol Schafer [facility] W.EDW [id number] 09/10/2015 13:59:00 016 14:37:00 DIS Emergency Robert BATISTA, [facility] W.EDN [id number] 03/23/2015 13:14:00 015 15:37:00 DIS Emergency Chetna BATISTA, [facility] W.EDW [id number] 05/10/2014 19:43:00 014 21:33:00 DIS Emergency Robert BATISTA, [facility] W.EDN [id number] 02/21/2018 22:21:00 Document Registration [id number] 08/21/2014 10:42:00 Document Registration [id number] 09/29/2013 18:05:00 09/30/19 14 18:54:00 DIS Emergency Dawood Willett DO [facility] TERM [id number] 09/26/2013 22:34:00 09/27/19 14 23:30:00 DIS Emergency Dawood Abdullahi MD [facility] TERM [id number] 04/01/2013 08:15:00 04/01/20 13 09:35:00 DIS Emergency Dawood Abdullahi MD [facility] TERM [id number] 02/24/2013 08:17:00 02/25/20 13 10:47:00 DIS Emergency Renée BATISTA, Marcos [facility] [id number] 02/13/2013 13:46:00 02/14/20 13 14:30:00 DIS Emergency Jeremiah BATISTA, James Felix [facility] TERM [id number] 12/10/2012 14:24:00 12/11/19 13 14:35:00 DIS Emergency Brandi ONEILL MD, Vipul Bhakta [facility] TERM [id number] 11/30/2012 18:05:00 12/01/19 13 20:35:00 DIS Emergency Israel Wyatt DO [facility] Mark BAUTISTA [id number] 09/10/2012 16:32:00 09/11/19 13 18:50:00 DIS Emergency Dawood Abdullahi MD [facility] TERM [id number] 02/08/2012 11:23:00 02/08/20 12 12:23:00 DIS Emergency Beto Monge DO [facility] [id number] 04/05/2019 17:44:00 04/05/2019 19:08 :00 DIS Emergency CAITLYNYOJANA [facility] 042 [id number] 10/29/2018 01:47:00 10/29/2018 03:01: 00 DIS Emergency ABIGAIL ZIMMER Macario [facility] 042 [id number] 10/16/2015 21:03:00 016 22:22:00 DIS Emergency Dawkins Howard [facility] on [facility] ED psych eval [id number] 08/31/2015 20:52:00 016 21:55:00 DIS Emergency Dank Gong MD [facility] on [facility] ED Rt hand injury [id number] 06/15/2014 20:13:00 015 21:15:00 DIS Emergency Lico Lock [facility] on [facility] ED asthma with difficulty breat sam/fever [id number] 08/12/2019 19:57:00 020 20:27:00 DIS Emergency NETO BARRIOS APRN [facility] ER MIGRAINES [id number] 06/29/2019 15:12:00 020 16:50:00 DIS Emergency BINDU MORE MD [facility] ER FEVER/THROAT DI SCOMFORT [id number] 03/16/2019 02:18:00 019 05:03:00 DIS Emergency BRENT EPPS DO [facility] ER SOA [id number] 02/07/2019 17:27:00 019 19:04:00 DIS Emergency NETO BARRIOS APRN [facility] ER VOMITING, FATIGUE, DIZZ Y, HEAVY CHEST [id number] 08/31/2013 12:13:00 08/31/2013 23:59 :59 CLS Outpatient
== END 2019-08-12 20:27 | disposition home or self-care (01) ==
LOC: EDUNIT# 19:55 → ER 19:57
DX: J32.9 Chronic sinusitis, unspecified (principal); J45.909 Unspecified asthma, uncomplicated; F17.210 Nicotine dependence, cigarettes, uncomplicated; Z88.8 Allergy status to other drugs, medicaments and biological substances; Z90.49 Acquired absence of other specified parts of digestive tract
CPT/HCPCS: 99281

== ENCOUNTER 2019-08-17 14:58 | Emergency (ER) | payer SELFPAY ==
[~2019-08-17] VITALS: Ht 175 cm; Wt 80.7 kg
[~2019-08-17 14:58] MED LIST changes: +AMOX-358 PO; +TRIA10.8 NS
[2019-08-17 15:07] VITALS: BP 124/81
[2019-08-17] MEDS ORDERED: ALBU90AE IH (15:13)
[2019-08-17] MEDS ORDERED: PRD20T PO ×2 (15:13→15:39)
--- NOTE | 2019-08-17 15:14 | ED General ---
General Stated Complaint: SINUS INFECTION;CONGESTION Source of Information: Patient Exam Limitations: No Limitations History of Present Illness Date Seen by Provider: Aug 17, 2019 Time Seen by Provider: 15:10 Initial Comments To ER with wheezing and cough. He was seen here on 08/11/18 diagnosed with sinusitis as he had nasal discharge and sinus pressure. He was on Augmentin, he reports now progression of symptoms to include wheezing. He is asthmatic, has a nebulizer at home, states he's been having to use a treatment about 3-4 times a day instead of once a week as he typically did. Timing/Duration: 1-2 Days Severity: Moderate Allergies and Home Medications Allergies Coded Allergies: fluticasone (Verified Allergy, Unknown, 08/12/19) salmeterol (Verified Allergy, Unknown, 08/12/19) Home Medications Albuterol Sulfate 90 Mcg Aer.pow.ba, 1-2 PUFF IH Q4H PRN for WHEEZING Prescribed by: NETO BARRIOS on 08/17/19 151 Amoxicillin/Potassium Clav 1 Each Tablet, 1 EACH PO BID Prescribed by: NETO BARRIOS on 08/12/192022 Azithromycin 250 Mg Tablet, 250 MG PO UD TAKE 2 TABLETS ON DAY ONE THEN TAKE 1 TABLET DAILY FOR FOUR MORE DAYS Prescribed by: NETO BARRIOS on 02/07/19 1859 Patient Home Medication List Home Medication List Reviewed: Yes Review of Systems Review of Systems Constitutional: see HPI; No chills, No fever EENTM: nose congestion Respiratory: see HPI, cough, wheezing Cardiovascular: no symptoms reported Genitourinary: no symptoms reported Musculoskeletal: no symptoms reported Skin: no symptoms reported Psychiatric/Neurological: No Symptoms Reported Hematologic/Lymphatic: No Symptoms Reported Immunological/Allergic: no symptoms reported Past Aijrrlp-Cqhosd-Fdugvo Hx Patient Social History Type Used: Cigarettes Former Smoker, Quit: Mar 13, 2019 2nd Hand Smoke Exposure: No Recent Foreign Travel: No Contact w/Someone Who Travel: No Recent Hopitalizations: No Immunizations Up To Date Tetanus Booster (TDap): Unknown PED Vaccines UTD: Yes Seasonal Allergies Seasonal Allergies: No Past Medical History Surgeries: Yes Appendectomy Respiratory: Yes Asthma Cardiac: No Neurological: No Reproductive Disorders: No Genitourinary: No Gastrointestinal: No Musculoskeletal: No Endocrine: No HEENT: No Cancer: No Psychosocial: No Integumentary: No Blood Disorders: No Physical Exam Vital Signs Vital Signs - First Documented 08/17/19 15:07 Temp 37.1 Pulse 93 Resp 18 B/P (MAP) 124/81 (95) Pulse Ox 96 O2 Delivery Room Air Capillary Refill : Height, Weight, BMI Height: 5'10.00" Weight: 210lbs. oz. 95.301358yy; 24.00 BMI Method:Stated General Appearance: No Apparent Distress, WD/WN Eyes: Bilateral Eye Normal Inspection, Bilateral Eye PERRL, Bilateral Eye EOMI HEENT: PERRL/EOMI, TM Abnormal (R) (erythematous bulging) Respiratory: Wheezing (diffuse wheezing) Cardiovascular: Regular Rate, Rhythm, Normal Peripheral Pulses Gastrointestinal: Normal Bowel Sounds, Non Tender, Soft Extremity: Normal Capillary Refill, Normal Inspection Neurologic/Psychiatric: Alert, Oriented x3 Skin: Normal Color, Warm/Dry Progress/Results/Core Measures Suspected Sepsis SIRS Temperature: Pulse: Respiratory Rate: Blood Pressure / Mean: Results/Orders My Orders Orders - NETO BARRIOS APRN Albuterol/Ipra Inhalation Soln (Duoneb I (08/17/19 15:15) Prednisone Tablet (Deltasone Tablet) (08/17/19 15:15) Svn Small Volume Nebulizer (08/17/19 15:09) Chest Pa/Lat (2 View) (08/17/19 15:21) Medications Given in ED Current Medications Medications Dose Ordered Sig/Annie Route Start Time Stop Time Status Last Admin Dose Admin Albuterol/ Ipratropium 3 ml ONCE ONCE INH 08/17/19 15:15 08/17/19 15:16 DC 08/17/19 15:19 3 ML Prednisone 60 mg ONCE ONCE PO 08/17/19 15:15 08/17/19 15:16 DC 08/17/19 15:31 60 MG Vital Signs/I&O 08/17/19 08/17/19 15:07 15:19 Temp 37.1 Pulse 93 Resp 18 B/P (MAP) 124/81 (95) Pulse Ox 96 96 O2 Delivery Room Air Room Air Capillary Refill : Departure Communication (Admissions) 2994-I spoke with [facility] pharmacy staff, the Nasacort and Augmentin that I sent in on the for his diagnosis of sinusitis still has not been picked up despite him telling me that he is taking. Impression Primary Impression: URI (upper respiratory infection) Qualified Codes: J06.9 - Acute upper respiratory infection, unspecified Additional Impression: Asthma exacerbation Qualified Codes: J45.901 - Unspecified asthma with (acute) exacerbation Disposition: HOME, SELF-CARE Condition: Stable Departure-Patient Inst. Decision time for Depature: 15:12 Referrals: NO,LOCAL PHYSICIAN (PCP/Family) Primary Care Physician Patient Instructions: Asthma in Adults Add. Discharge Instructions: 1. The antibiotics that I sent in on 08/12/19 R still waiting for you with the pharmacy, they only work if you take them. Same applies for the steroids that I'm prescribing today. Also sent to [facility] Prednisone (Prednisone) 20 Mg Tab 40 MG PO DAILY, #6 TAB 0 Refills Prov: NETO BARRIOS APRN 08/17/19 Albuterol Sulfate (Proair Respiclick) 90 Mcg Aer.pow.ba 1-2 PUFF IH Q4H PRN for WHEEZING, #1 INHALER Prov: NETO BARRIOS APRN 08/17/19 Work/School Note: Work Release Form Date Seen in the Emergency Department: Aug 17, 2019 Return to Work: Aug 18, 2019 NETO BARRIOS APRN Aug 17, 2019 15:14
[2019-08-17] MEDS ORDERED: RT-ALBUTEROL/IPRATROPIUM 3 ML (DUONEB) VIAL INH ONE (15:15)
[2019-08-17] MEDS ORDERED: predniSONE 20 MG TAB PO ONE (15:15)
--- NOTE | 2019-08-17 15:19 | NUR ---
RT IN ROOM AT THIS TIME.
--- NOTE | 2019-08-17 15:36 | Diagnostic Imaging Report ---
INDICATION: Sinus infection, cough, wheezing. COMPARISON: 03/16/2019. TECHNIQUE: Two radiographs of the chest are dated 08/17/2019. FINDINGS: The cardiac silhouette is within normal limits in size. No significant pulmonary vascular congestion. The lungs are clear. No pleural effusion. No pneumothorax. No acute osseous abnormality. IMPRESSION: Stable examination without acute cardiopulmonary abnormality. Dictated by: Dictated on workstation # [id number]
--- OUTSIDE RECORDS SUMMARY | 2019-08-17 18:45 | XMS REPORT | Continuity of Care Document ---
Author Organization Unknown Address Unknown Phone Unavailable Allergies Active Description Code Type Severity Reaction Onset Reported/Identified Relationship to Patient Clinical Status Yes No Known Drug Allergies 48524491 Miscellaneous Allergy Moderate N/A Yes ADVAIR HFA 115/21 18590774 D rug Allergy Unknown SOB Yes PEANUTS 24540565 Food Allergy Unknown SOB Yes VENTOLIN HFA 08113804 Drug Allerg y Unknown SOB Yes No [...] Allergy N/A unknown /unknown 02/24/2013 Yes Peanuts 23642 N/A unknown 09/29/2013 Yes Advair Diskus NKMA S evere [id number] 12/12/2013 Yes albuterol albuterol Drug Allergy Unknown [...] HIVES 01/09/2017 Yes No Known Drug Allergies [id number] Drug Allergy Unknown N/A 02/07/2019 Yes fluticasone [id number] Drug Aller gy Unknown N/A 08/12/2019 Yes salmeterol [id number] Drug Allerg y Unknown N/A 08/12/2019 Medications [...] MD Admitting 780.4 DIZZINESS GIDDINESS 09/26/2013 Dawood bAdullahi MD Final 493.9 0 ASTHMA NOS 09/26/2013 [...] not elsewhere classified 12/28/2017 KALYAN OLIVEIRA 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) 12/28/2017 KALYAN OLIVEIRA Z8709 Personal history of other diseases of the respiratory system 12/28/2017 KALYAN OLIVEIRA Z888 Allergy status to other drugs, medicaments and biological substances status 12/28/2017 KALYAN OLIVEIRA Z9089 Acquired absence of other organs 02/01/2018 HYACINTH GILMAN K45561 Nicotine dependence, cigarettes, uncomplicated 02/01/2018 HYACINTH GILMAN M7989 Other specified soft tissue disorders 02/01/2018 HYACINTH GILMAN R58 Hemorrhage, not elsewhere classified 02/01/2018 HYACINTH GILMAN M41590 A Crushing injury of right middle finger, initial encounter 02/01/2018 HYACINTH GILMAN W230XX A Caught, crushed, jammed, or pinched between moving objects, initial encounter 02/01/2018 HYACINTH GILMAN X21555 Shop (commercial) as the place of occurrence of the external cause 02/01/2018 HYACINTH GILMAN Y9389 Activity, other specified 02/01/2018 HYACINTH GILMAN Y990 Civilian activity done for income or pay 02/01/2018 HYACINTH GILMAN V28944 Other long-term (current) drug therapy 05/25/2018 DAWSON DIAZ II S J62895 Nicotine dependence, cigarettes, uncomplicated 05/25/2018 DAWSON DIAZ II P H14000 Unspecified asthma with (acute) exacerbation 05/25/2018 DAWSON DIAZ II S R05 Cough 05/25/2018 DAWSON DIAZ II S K61046 Other long term care social worker (current) drug therapy 05/25/2018 DAWSON DIAZ II S Z8709 Personal history of other diseases of the respiratory system 05/25/2018 DAWSON DIAZ II S Z888 Allergy status to other drugs, medicaments and biological substances status 10/08/2018 JENNIFER GOSS G30145 Nicotine dependence, cigarettes, uncomplicated 10/08/2018 JENNIFER GOSS P Z039PUW Sprain of ligaments of thoracic spine, initial encount er 10/08/2018 JENNIFER GOSS W27RKBI Unspecified fall, initial encounter 10/08/2018 JENNIFER GOSS Y9289 Other specified places as the place of o ccurrence of the external cause 10/08/2018 JENNIFER GOSS Y9389 Activity, other specified 10/08/2018 JENNIFER GOSS Y990 Civilian activity done for income or pay 10/08/2018 JENNIFER GOSS F63751 Other long term care social worker (current) drug therapy 10/08/2018 JENNIFER GOSS Z888 [...] Other external cause status 10/29/2018October, ABIGAIL Montemayor N89237 Nicotine dependence, unspecified, uncomplicated 10/29/2018October, ABIGAIL Love S J209 Acute bronchitis, unspecified 10/29/2018October, ABIGAIL M P R74041 Unspecified asthma with (acute) exacerbation 12/03/2018 DAWSON DIAZ II S M542 Cervicalgia 12/03/2018 DAWSON DIAZ II S M545 Low back pain 12/03/2018 DAWSON DIAZ II S M546 Pain in thoracic spine 12/03/2018 DAWSON DIAZ II S M6281 Muscle weakness (generalized) 12/03/2018 DAWSON DIAZ II P S299XX D Unspecified injury of thorax, subsequent encounter 12/25/2018 HYACINTH GILMAN D78160 Nicotine dependence, unspecified, uncomplicated 12/25/2018 HYACINTH GILMAN F418 Other specified anxiety disorders 12/25/2018 HYACINTH GILMAN V61224 Suicidal ideations 12/25/2018 HYACINTH GILMAN T481X2 A Poisoning by skeletal muscle relaxants [neuromuscular blocking agents], intentional self-harm, initial encounter 12/25/2018 HYACINTH GILMAN H69961 Other long-term (current) drug therapy 12/25/2018 HYACINTH GILMAN Z888 Allergy status to other drugs, medicaments and biological substances status 12/31/2018 JENNIFER GOSS C02054 Nicotine dependence, unspecified, uncomplicated 12/31/2018 JENNIFER GOSS G8929 Other chronic pain 12/31/2018 JENNIFER GOSS Y80550R Strain of muscle, fascia and tendon of l ower back, initial encounter 12/31/2018 JENNIFER GOSS M37PLHI Exposure to other specified factors, initial encounter [...] by health care provider 04/05/2019 REYES MENDIETA M21870 Nicotine dependence, unspecified, uncomplicated 04/05/2019 REYES MENDIETA R05 Cough 04/05/2019 REYES MENDIETA L23826X Contusion of right front wall of thorax, initial encounter 04/05/2019 REYES MENDIETA T361DEE Fall through floor, initial encounter 04/05/2019 REYES MENDIETA N13435 Other place in unspecified non-institutional (private) residence as the place of occurrence of the external cause 04/05/2019 REYES MENDIETA Y9301 Activity, walking, marching and hiking 04/05/2019 REYES MENDIETA Y998 Other external cause status 04/05/2019 REYES MENDIETA Z8709 Personal history of other diseases of the respiratory system 04/05/2019 REYES MENDIETA Z888 Allergy status to other drugs, medicaments and biological substances status 04/05/2019 REYES MENDIETA X43656 Allergy to peanuts 04/05/2019 REYES MENDIETA U88121 Allergy to seafood 04/05/2019 REYES MENDIETA F85803 Allergy to other foods 06/29/2019 BINDU MORE [...] NEGAT SHAWN MDMA(XTCX) NEG NORMAL: NEGATIVE [facility] [address] - 10/26/18 20:00 LACTIC ACID PLASMA 1.8 [...] 20 yrs NRG GFR 101 NRG Salicylates [facility] - 12/25/18 17:05 SALICYLATE <6.0 mg/dl 4.0 - 20.0 APAP [facility] - 12/25/18 17:05 ACETAMINOPHEN <10 ug/ml 10 - 30 Ethanol [facility] - 12/25/18 17:07 ALCOHOL 3 mg/dl 0 [...] throat culture NBS NRG Radiology Report from [id number] on 013 11:07:00 Final ReportADMITTING DIAGNOSIS: LT wrist pain LEFT WRIST PAIN, FALLWRIST COMPLETE(3+VWS) LT - 09/10/[address] [facility] [address] [facility] RESULT: INDICATION: Left wrist trauma.EXAMINATION: Four views of the left wrist.FINDINGS: Examination of the left wrist fails to revealevidence of fracture, dislocation or other bony abnormality.IMPRESSION: Negative left wrist.Dictated on workstation # [id number] BY: MAXIME RIOS M.D., RADIOLOGISTELECTRONICALLY SIGNED BY: MAXIME RIOS M.D., RADIOLOGISTD Sep 10 2012 5:04PT MSK: Sep 11 2012 11:05AS Sep 11 2012 11:05A Radiology Report from [id number] on 013 21:43:00 Final ReportADMITTING DIAGNOSIS: right [...] foreign body is detected.Dictated on workstation # [id number] BY: STEPHANIE WATKINS M.D., RADIOLOGISTELECTRONICALLY SIGNED BY: STEPHANIE WATKINS M.D., RADIOLOGISTD Nov 30 2012 6:50PT PJE: Nov 30 2012 6:53PS Nov 30 2012 9:40P Radiology Report from [id number] on 013 12:04:00 Final ReportADMITTING DIAGNOSIS: asthma problems asthmaCHEST PA LAT - 02/24/2013 [facility] RESULT: INDICATION: AsthmaEXAMINATION: PA and lateral views of the chest.FINDINGS: The heart size and vascularity are normal. Lungs areclear. There is no effusion. There is no acute bony abnormality.IMPRESSION: No acute abnormality is seen.There is no change from 02/08/12.Dictated on workstation # [id number] BY: BRIGITTE WINN M.D., RADIOLOGISTELECTRONICALLY SIGNED BY: BRIGITTE WINN M.D., RADIOLOGISTD Feb 24 2013 10:25AT WILMER: Feb 24 2013 12:02PS Feb 24 2013 12:02P Radiology Report from [id number] on 014 13:34:00 Extracted from:Title :Progress/SOAP Not [...] SpO2: 99% WT:66.5 kgPHYSICAL EXAMGen: Alert and Hn9SUEZA: PERLAMouth: dry without lesionLungs: CTACV: RRR and [...] an improvement from the CT from03/30/17.Dictated on workstation:[id number] By: Brigitte Natarajan MD XR SMALL BOWEL W/ SERIAL FILMS04/01/17 17:13:52IMPRESSION: Negative small bowel study.Tech Comments: Fluoroscopy time (in minutes): .2Dictated on workstation:[id number] By: Beto Velasco MDXR CHEST 1 VIEW FRONTAL03/30/17 16:26:37IMPRESSION: There is cardiomegaly with no failure. The chest is similar to aprior study from 11/07/2016.Dictated on workstation:[id number] By: Brigitte Natarajan MDCT ABDOMEN W/ + W/O PELVIS W/ + W/O CONT03/31/17 08:13:29IMPRESSION: Findings compatible with a high degree of small bowel obstruction.Nonobstructing renal stones.Tech Comments: IV Contrast Name: EALMJZOWY778Aeqgshwh amount in mlX27s: 80Dictated on workstation:[id number] By: Almas Navarro DOMedications (11) ActiveScheduled: (4)losartan 50 mg tab 50 mg 1 tabs, Oral, Dailyocular lube 0.5% (Refresh Plus) opth soln gtts 0.4mL 1 drops, Eye-Both, Bedtime (once a day)pantoprazole 40 mg vial 40 mg 10 mL, IV Push, Dailypotassium chloride 20 mEq packet 20 mEq 1 packets, Oral, BIDWMContinuous: (0)PRN: (7)acetaminophen 325 mg tab 650 mg 2 tabs, Oral, q9lkxqsyqql carbonate 500 mg tab chew 1,000 mg 2 tabs, Chewed, Dailyclotrimazole-betamethasone 1%-0.05% top cream;15g 1 rebekah, Topical, DailyHYDROmorphone PF 1 mg/mL injection; 1 mL 0.5 mg 0.5 mL, IV Push, r7rurgjigxeom 15 mg/mL vial; 1 mL 15 mg 1 mL, IV Push, f5dbqbwsxyfcapy 2 mg/mL vial; 2 mL 4 mg 2 mL, IV Push, a37eexpaacqzecewp 4 mg tab dis 4 mg 1 tabs, Oral, OnceASSESSMENT/PLANHypertensionwill resume LosartanAbdominal pain, Abdominal pain2/2 SBO., improvedSmall bowel obstructionimprovedcontinue liquid diet and advance as tolerateVomitingresolvedHypokalemiawill replaceElectronically Signed on 04/02/2017 05:11 PM CDT Gabrielle Cabral MD Radiology Report from MARK on 03/23/20 15:03:00 DIAGNOSTIC ANIBAL GING REPORT [facility] - [address] [place] [address] PHONE #: [phone] FAX #: [phone] Name: DAVE RICH Loc: [facility] Radiology No: : 2000 Age: 14 Sex: M Status: REG ER Unit No: [id number] Phys: Betty Toussaint APR Acct: [id number] Reason For Exam: weights fell on chest, pain Exam Date: 03/23/2015 EXAMS: CPT CODE: [id number] CHEST AP/PA LATERAL 25083 TIME OF STUDY: 03/23/2015 2:33 PM REASON [...] the resident physician's interpretation if necessary. at 7149 RESIDENT: ROMY MONTGOMERY MD Reported and signed by: TAMRA MATHIS MD CC: Technologist: GEO SKELTON Transcribed Date/Time: 03/23/2015 (6487)Construction Engineer: [email or web address] Printed Date/Time: 03/23/2015 (6234) BATCH NO: N/A PAGE 1 Signed Report Encounters ACCT No. Visit Date/Time Discharge Status Pt. Type Provider Facility Loc./Unit Complaint [id number] 04/05/2019 19:29:00 04/05/2019 20:17: 00 DIS Emergency REYES MENDIETA [facility] 025 RIGHT SIDE PAIN [id number] 12/31/2018 21:05:00 12/31/2018 21:50: 00 DIS Emergency JENNIFER GOSS [facility] 025 PT IS HAVING BACK PAIN [id number] 12/25/2018 16:49:00 12/25/2018 19:40: 00 DIS Emergency [facility] INGEST PILLS [id number] 11/06/2018 11:06:00 11/06/2018 23:59: 59 [facility] Outpatient EMILY DAWSON HERNÁN [id number] 10/26/2018 17:46:00 10/26/2018 21:17: 00 DIS Emergency GILMAN, HYACINTHCarroll MALONE [facility]25 [facility] [id number] 10/21/2018 10:58:00 10/21/2018 10:58: 00 DIS Outpatient DAWSON DIAZ II [id number] 10/08/2018 20:06:00 10/08/2018 20:50: 00 DIS Emergency JENNIFER GOSS [facility] REG [facility] 025 FELL AT WORK HURT HIS MANUEL K [id number] 05/25/2018 02:52:00 05/25/2018 03:35: 00 DIS Emergency DAWSON DIAZ II [facility] 025 ASTHMA ATTACK [id number] 02/01/2018 18:42:00 02/01/2018 19:41: 00 DIS Emergency HYACINTH GILMAN [facility] 025 SMASHED FINGER [id number] 12/28/2017 10:34:00 12/28/2017 11:10: 00 DIS Emergency ROXANNE, KALYAN Schafer [facility] 025 PAIN AT TAILBONE [id number] 12/25/2018 16:49:00 Document Registration [id number] 10/26/2018 17:46:00 Document Registration [id number] 10/21/2018 10:58:00 Document Registration [id number] 10/12/2018 01:10:00 019 01:33:00 DIS Emergency Ghanshyam Lares DO [facility] W.EDS [id number] 01/09/2017 16:44:00 017 17:18:00 DIS Emergency Alvina BATISTA, Aurea Schafer [facility] W.EDW [id number] 12/21/2016 18:17:00 017 18:53:00 DIS Emergency Dinh Saucedo DO [facility] W.EDW [id number] 10/25/2015 12:15:00 016 13:14:00 DIS Emergency Renée BATISTA, Marcos Marks [facility] W.EDW [id number] 09/12/2015 18:53:00 016 20:50:00 DIS Emergency Samina BATISTA, Maycol Schafer [facility] W.EDW [id number] 09/10/2015 13:59:00 016 14:37:00 DIS Emergency Robert BATISTA, [facility] W.EDN [id number] 03/23/2015 13:14:00 015 15:37:00 DIS Emergency Chetna BATISTA, [facility] W.EDW [id number] 05/10/2014 19:43:00 014 21:33:00 DIS Emergency Robert BATISTA, [facility] W.EDN [id number] 02/21/2018 22:21:00 Document Registration [id number] 08/21/2014 10:42:00 Document Registration [id number] 09/29/2013 18:05:00 09/30/19 14 18:54:00 DIS Emergency Dawood Willett DO [facility] TERM [id number] 09/26/2013 22:34:00 09/27/19 14 23:30:00 DIS Emergency Dawood Abdullahi MD [facility] TERM [id number] 04/01/2013 08:15:00 04/01/20 13 09:35:00 DIS Emergency Dawood Abdullahi MD [facility] TERM [id number] 02/24/2013 08:17:00 02/25/20 13 10:47:00 DIS Emergency Renée BATISTA, Marcos [facility] [id number] 02/13/2013 13:46:00 02/14/20 13 14:30:00 DIS Emergency Jeremiah BATISTA, James [facility] TERM [id number] 12/10/2012 14:24:00 12/11/19 13 14:35:00 DIS Emergency Brandi ONEILL MD, Vipul Bhakta [facility] TERM [id number] 11/30/2012 18:05:00 12/01/19 13 20:35:00 DIS Emergency Israel Wyatt DO [facility] Mark BAUTISTA [id number] 09/10/2012 16:32:00 09/11/19 13 18:50:00 DIS Emergency Dawood Abdullahi MD [facility] TERM [id number] 02/08/2012 11:23:00 02/08/20 12 12:23:00 DIS Emergency Beto Monge DO [facility] [id number] 04/05/2019 17:44:00 04/05/2019 19:08 :00 DIS Emergency CAITLYNYOJANA [facility] 042 [id number] 10/29/2018 01:47:00 10/29/2018 03:01: 00 DIS Emergency ABIGAIL ZIMMER Johan Macario [facility] 042 [id number] 10/16/2015 21:03:00 016 22:22:00 DIS Emergency Dawkins Howard Vi [facility] ED psych eval [id number] 08/31/2015 20:52:00 016 21:55:00 DIS Emergency Dank Gong MD [facility] ED Rt hand injury [id number] 06/15/2014 20:13:00 015 21:15:00 DIS Emergency Lico Lock [facility] ED asthma with difficulty breat sam/fever [id number] 08/17/2019 14:59:00 15:39:00 DIS Emergency NETO BARRIOS APRN [facility] ER SINUS INFECTION;CONGEST ION [id number] 08/12/2019 19:57:00 020 20:27:00 DIS Emergency NETO BARRIOS APRN [facility] ER MIGRAINES [id number] 06/29/2019 15:12:00 16:50:00 DIS Emergency BINDU MORE MD [facility] ER FEVER/THROAT DI SCOMFORT [id number] 03/16/2019 02:18:00 019 05:03:00 DIS Emergency BRENT EPPS DO [facility] ER SOA [id number] 02/07/2019 17:27:00 019 19:04:00 DIS Emergency NETO BARRIOS APRN [facility] ER VOMITING, FATIGUE, DIZZ Y, HEAVY CHEST [id number] 08/31/2013 12:13:00 08/31/2013 23:59 :59 CLS Outpatient
== END 2019-08-17 15:39 | disposition home or self-care (01) ==
LOC: EDUNIT# 14:58 → ER 14:59
DX: J06.9 Acute upper respiratory infection, unspecified (principal); J45.901 Unspecified asthma with (acute) exacerbation; Z88.8 Allergy status to other drugs, medicaments and biological substances; Z87.891 Personal history of nicotine dependence
CPT/HCPCS: 71046; 94640

== ENCOUNTER 2019-12-06 13:51 | Emergency (ER) | payer SELFPAY ==
[~2019-12-06] VITALS: Ht 71 cm; Wt 80.0 kg
[~2019-12-06 13:51] MED LIST changes: +ALBU90AE IH; +PRD20T PO
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
[2019-12-06] MEDS ORDERED: AMOX-358 PO (14:29)
[2019-12-06] MEDS ORDERED: AUGMENTIN 875 MG TAB (AMOXICILLIN/CLAVULANATE) PO SCH (14:30)
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
--- NOTE | 2019-12-06 14:33 | NUR ---
Cleaned laceration on leg
--- NOTE | 2019-12-06 14:47 | Diagnostic Imaging Report ---
INDICATION: Injury, right lower leg pain. EXAMINATION: AP and lateral views of the right tibia and fibula were obtained. FINDINGS: No fracture, dislocation or other abnormality. IMPRESSION: Normal right tibia and fibula. Dictated by: Dictated on workstation # [id number]
[2019-12-06 15:00] VITALS: BP 134/72
== END 2019-12-06 15:00 | disposition home or self-care (01) ==
LOC: EDUNIT# 13:51 → ER 13:52
DX: S81.811A Laceration without foreign body, right lower leg, initial encounter (principal); V86.99XA Unspecified occupant of other special all-terrain or other off-road motor vehicle injured in nontraffic accident, initial encounter; Z87.891 Personal history of nicotine dependence; J45.909 Unspecified asthma, uncomplicated; Z79.899 Other long term (current) drug therapy
CPT/HCPCS: 73590

== ENCOUNTER 2020-08-22 06:58 | Emergency (ER) | payer BC, OTHER ==
[~2020-08-22] VITALS: Ht 177 cm; Wt 107.9 kg
[2020-08-22] MEDS ORDERED: ONDANSETRON 4 MG (ZOFRAN) ORAL DISSOLVE TAB PO STA (07:18)
--- NOTE | 2020-08-22 07:22 | ED Respiratory ---
General Chief Complaint: Cough/Cold/Flu Symptoms Stated Complaint: CONGESTION / FEVER / N/V Source: patient Exam Limitations: no limitations History of Present Illness Date Seen by Provider: Aug 22, 2020 Time Seen by Provider: 07:19 Initial Comments Silviano is a 20-year-old male who presents to the emergency department today with a chief complaint of sinus drainage and congestion, facial pain, cough and shortness of breath. He is also had nausea and vomiting. Symptoms started 3 or 4 days ago. He has developed nausea and vomiting with heartburn in addition to some diarrhea. He denies any known sick Covid contacts. He states he did not get a flu shot this year. He states he is having some mild body aches. He has no loss of taste or smell. He states his cough is nonproductive. He has been using his inhalers as needed. He has been chewing Tums for the heartburn type symptoms. He does state that he smokes cigarettes. He splits a pack with his fiance every day to every 2 days. Patient states his fever T-max has been 101.6. He is taken some Tylenol and ibuprofen. He took ibuprofen this morning but then vomited. No urinary complaints. No rashes. All other review of systems reviewed and negative except as stated. Timing/Duration: week Severity: moderate Modifying Factors: Improves With Albuterol Inhaler Associated Symptoms: cough, facial pain, fever/chills, lightheadedness, muscle aches, nasal congestion, nasal drainage, sinus infection; No sore throat Allergies and Home Medications Allergies Coded Allergies: fluticasone (Verified Allergy, Unknown, 08/12/19) salmeterol (Verified Allergy, Unknown, 08/12/19) Home Medications Albuterol Sulfate 90 Mcg Aer.pow.ba, 1-2 PUFF IH Q4H PRN for WHEEZING Prescribed by: NETO BARRIOS on 08/17/19 151 Amoxicillin/Potassium Clav 1 Each Tablet, 1 EACH PO BID Prescribed by: NETO BARRIOS on 08/12/192022 Amoxicillin/Potassium Clav 1 Each Tablet, 1 EACH PO BID Prescribed by: NETO BARRIOS on 12/06/19 1429 Azithromycin 250 Mg Tablet, 250 MG PO UD TAKE 2 TABLETS ON DAY ONE THEN TAKE 1 TABLET DAILY FOR FOUR MORE DAYS Prescribed by: NETO BARRIOS on 02/07/19 185 Prednisone 20 Mg Tab, 40 MG PO DAILY Prescribed by: NETO BARRIOS on 08/17/19 1539 Patient Home Medication List Home Medication List Reviewed: Yes Review of Systems Review of Systems Constitutional: see HPI EENTM: tearing, nose congestion, nose pain Respiratory: cough; No phlegm; short of breath Cardiovascular: no symptoms reported Gastrointestinal: no symptoms reported Genitourinary: no symptoms reported Musculoskeletal: muscle cramps Skin: no symptoms reported All Other Systems Reviewed Negative Unless Noted: Yes Past Wklrcsq-Zbewbf-Bhhwll Hx Patient Social History Alcohol Use: Denies Use Smoking Status: Current Everyday Smoker Type Used: Cigarettes Former Smoker, Quit: Mar 13, 2019 2nd Hand Smoke Exposure: No Recent Hopitalizations: No Immunizations Up To Date Tetanus Booster (TDap): Unknown PED Vaccines UTD: Yes Seasonal Allergies Seasonal Allergies: No Past Medical History Surgeries: Yes Appendectomy Respiratory: Yes Asthma Cardiac: No Neurological: No Reproductive Disorders: No Genitourinary: No Gastrointestinal: No Musculoskeletal: No Endocrine: No HEENT: No Cancer: No Psychosocial: No Integumentary: No Blood Disorders: No Physical Exam Vital Signs - First Documented 08/22/20 07:17 Temp 36.6 Pulse 90 Resp 18 B/P (MAP) 151/71 (97) Pulse Ox 98 Capillary Refill : Height: 5'10.00" Weight: 210lbs. oz. 95.025311wi; 158.00 BMI Method:Stated General Appearance: WD/WN, no apparent distress HEENT: PERRL/EOMI, pharyngeal erythema (mild) Neck: full range of motion, supple, normal inspection; No lymphadenopathy (R), No lymphadenopathy (L) Respiratory: lungs clear, normal breath sounds, no respiratory distress, no accessory muscle use, other (Coarse sounding cough) Cardiovascular: regular rate, rhythm Gastrointestinal: normal bowel sounds, soft, tenderness (Epigastric tenderness to palpation) Extremities: non-tender, normal inspection, no pedal edema, no calf tenderness Neurologic/Psychiatric: alert, normal mood/affect, oriented x 3 Skin: normal color, warm/dry Progress/Results/Core Measures Suspected Sepsis SIRS Temperature: Pulse: Respiratory Rate: Blood Pressure / Mean: Results/Orders Lab Results Laboratory Tests Test 08/22/20 07:14 Range/Units Coronavirus 2019 (DANIELLE) Negative Negative Micro Results Microbiology 08/22/20 Influenza Types A,B Antigen (MARYLIN) - Final, Complete My Orders Orders - JIMBO OSORIO MD Ondansetron Oral Dissolve Tab (Zofran (08/22/20 07:18) Antacid Suspension (Mylanta Suspension (08/22/20 07:30) Lidocaine 2% Viscous 15 Ml (Xylocaine Vi (08/22/20 07:30) Dexamethasone Injection (Decadron Injec (08/22/20 07:30) Influenza A And B Antigens (08/22/20 07:22) Covid 19 Inhouse Test (08/22/20 07:22) Medications Given in ED Current Medications Medications Dose Ordered Sig/Annie Route Start Time Stop Time Status Last Admin Dose Admin Al Hydrox/Mg Hydrox/Simethicone 30 ml ONCE ONCE PO 08/22/20 07:30 08/22/20 07:31 DC 08/22/20 07:25 30 ML Dexamethasone Sodium Phosphate 8 mg ONCE ONCE IM 08/22/20 07:30 08/22/20 07:31 DC 08/22/20 07:25 8 MG Lidocaine HCl 5 ml ONCE ONCE PO 08/22/20 07:30 08/22/20 07:31 DC 08/22/20 07:25 5 ML Vital Signs/I&O 08/22/20 07:17 Temp 36.6 Pulse 90 Resp 18 B/P (MAP) 151/71 (97) Pulse Ox 98 Capillary Refill : Progress Note : Time: 08:13 Progress Note Patient's rapid Covid swab is negative as well as his influenza screen. Patient is treated in the emergency department with 8 mg of Decadron IM, viscous lidocaine and Maalox combination as well as 8 mg of Zofran ODT. Patient will be treated for a sinus infection with antibiotics, Biaxin twice daily for 10 days. Patient is comfortable with plan of care. He is strongly encouraged to quit smoking. All questions are sought and answered. Patient is stable for disch arge. Counseling-Symptomatic: 3-10 Minutes Discussed Options Including: Nicotine Gum Follow-up with PCP to: Discuss Further Options Departure Impression Primary Impression: Sinusitis Qualified Codes: J01.10 - Acute frontal sinusitis, unspecified Additional Impression: Nausea & vomiting Qualified Codes: R11.2 - Nausea with vomiting, unspecified Disposition: 01 HOME, SELF-CARE Condition: Stable Departure-Patient Inst. Decision time for Depature: 08:14 Referrals: [facility] [place],LOCAL PHYSICIAN (PCP) Primary Care Physician Patient Instructions: Sinusitis, Adult (DC) Add. Discharge Instructions: Drink plenty of fluids to stay well-hydrated. Use [id number] Mucinex as needed for sinus congestion. This will help thin your secretions and make it easier for you to clear out your sinuses. Take the antibiotics as prescribed. I have given you medication for nausea. You can take this every 8 hours as needed. Follow-up with your primary care physician. Please try and quit smoking. Scripts Ondansetron (Ondansetron Odt) 4 Mg Tab.rapdis 4 MG PO Q8H PRN for nausea, #15 TAB Prov: JIMBO OSORIO MD 08/22/20 Doxycycline Hyclate (Doxycycline Hyclate) 100 Mg Tablet 100 MG PO BID WITH MEALS for 7 Days, #14 TAB Prov: JIMBO OSORIO MD 08/22/20 Work/School Note: Work Release Form Date Seen in the Emergency Department: Aug 22, 2020 Return to Work: Aug 23, 2020 JIMBO OSORIO MD Aug 22, 2020 07:22
[2020-08-22] MEDS ORDERED: ANTACID SUSP 30 ML UDC (MYLANTA) PO ONE (07:30)
[2020-08-22] MEDS ORDERED: LIDOCAINE 2% VISCOUS 15 ML UDC PO ONE (07:30)
[2020-08-22] MEDS ORDERED: DOXY100T2 PO (08:19)
[2020-08-22] MEDS ORDERED: ONDA4TAB11 PO (08:20)
[2020-08-22 08:24] VITALS: BP 142/65
== END 2020-08-22 08:24 | disposition home or self-care (01) ==
LOC: EDUNIT# 06:58 → ER 06:59
DX: J32.9 Chronic sinusitis, unspecified (principal); R11.2 Nausea with vomiting, unspecified; J45.909 Unspecified asthma, uncomplicated; I10 Essential (primary) hypertension; F17.210 Nicotine dependence, cigarettes, uncomplicated; Z20.822 Contact with and (suspected) exposure to COVID-19; Z88.8 Allergy status to other drugs, medicaments and biological substances; Z79.52 Long term (current) use of systemic steroids
CPT/HCPCS: 87804; 99282; U0002; 87635

== ENCOUNTER 2021-01-14 21:48 | Emergency (ER) | payer SELFPAY ==
[~2021-01-14] VITALS: Ht 177 cm; Wt 108.2 kg
[~2021-01-14 21:48] MED LIST changes: +DOXY100T2 PO; +ONDA4TAB11 PO
[2021-01-15] MEDS ORDERED: RX-ONDANSETRON 4 MG ODT (ZOFRAN) PPK #4 PO STA (00:29)
[2021-01-15] MEDS ORDERED: dexAMETHasone 6 MG TAB (DECADRON) PO SCH (00:30)
[2021-01-15] MEDS ORDERED: DEXA6TAB6 PO (00:33)
[2021-01-15] MEDS ORDERED: ONDA4TAB11 PO (00:33)
--- NOTE | 2021-01-15 00:33 | ED Cough/URI ---
General Chief Complaint: Cough/Cold/Flu Symptoms Stated Complaint: CONGESTION/SOB/N/V/D Nursing Triage Note: PT ARRIVES AMB. TO ROOM NINE WITH C/O LOSS OF TASTE AND SMELL, NV AND COUGH THAT ONSET SATURDAY WITH FEVER AND CHILLS. ALSO VERBALIZES BARR AND SINUS PRESSURE. PT STATES HE HAS A HX OF ASTHMA. Source: patient History of Present Illness Date Seen by Provider: Jan 14, 2021 Time Seen by Provider: 23:32 Initial Comments PT ARRIVES VIA POV FROM HOME STATES HE HAS BEEN SICK X 3 DAYS C/O NON-PRODUCTIVE COUGH C/O NASAL CONGESTION AND DRAINAGE C/O SORE THROAT C/O LOSS OF TASTE AND SMELL C/O SHORTNESS OF BREATH THE LAST 2 DAYS--PT HAS ASTHMA AND HAS BEEN USING ALBUTEROL INHALER THE LAST 2 DAYS--NOT USING SPACER C/O SUBJECTIVE FEVER/SWEATS/CHILLS C/O NAUSEA, VOMITED X 5, AND DIARRHEA X 1 TODAY C/O FATIGUE C/O HEADACHE C/O BODY ACHES PT LIVES WITH GIRLFRIEND, BUT SHE DOES NOT HAVE ANY SYMPTOMS--SHE HAS NOT BEEN VACCINATED FOR COVID-19 PT WORKS AT [employer] NOT REQUIRED TO WEAR MASKS, AND HE DOES NOT PT HAS NOT BEEN VACCINATED AGAINST COVID-19 PT HAS OTHERWISE NOT TAKEN ANYTHING FOR SYMPTOMS, OTHER THAN USING INHALER --LAST USED IT THIS MORNING. PCP: [facility] Allergies and Home Medications Allergies Coded Allergies: fluticasone (Verified Allergy, Unknown, 08/12/19) salmeterol (Verified Allergy, Unknown, 08/12/19) Home Medications Albuterol Sulfate 90 Mcg Aer.pow.ba, 1-2 PUFF IH Q4H PRN for WHEEZING Prescribed by: NETO BARRIOS on 08/17/19 1513 Amoxicillin/Potassium Clav 1 Each Tablet, 1 EACH PO BID Prescribed by: NETO BARRIOS on 08/12/192022 Amoxicillin/Potassium Clav 1 Each Tablet, 1 EACH PO BID Prescribed by: NETO BARRIOS on 12/06/19 1429 Azithromycin 250 Mg Tablet, 250 MG PO UD TAKE 2 TABLETS ON DAY ONE THEN TAKE 1 TABLET DAILY FOR FOUR MORE DAYS Prescribed by: NETO BARRIOS on 02/07/19 1859 Dexamethasone 6 Mg Tablet, 6 MG PO DAILY Prescribed by: BRENT EPPS on 8/15/21 0033 Doxycycline Hyclate 100 Mg Tablet, 100 MG PO BID WITH MEALS Prescribed by: JIMBO OSORIO on 08/22/20818 Ondansetron 4 Mg Tab.rapdis, 4 MG PO Q8H PRN for nausea Prescribed by: JIMBO OSORIO on 08/22/20819 Ondansetron 4 Mg Tab.rapdis, 4 MG PO Q4H Prescribed by: BRENT EPPS on 01/15/2132 Prednisone 20 Mg Tab, 40 MG PO DAILY Prescribed by: NETO BARRIOS on 08/17/19 1539 Patient Home Medication List Home Medication List Reviewed: Yes Review of Systems Review of Systems Constitutional: see HPI, chills, diaphoresis, fever, malaise EENTM: see HPI, nose congestion, throat pain Respiratory: see HPI, cough, short of breath Cardiovascular: no symptoms reported Gastrointestinal: see HPI, diarrhea, nausea, vomiting Genitourinary: no symptoms reported Musculoskeletal: see HPI (BODY ACHES) Skin: no symptoms reported Psychiatric/Neurological: See HPI, Headache (HAS FREUQENT/CHRONIC HEADACHES) Hematologic/Lymphatic: No Symptoms Reported Immunological/Allergic: no symptoms reported Past Btkoufk-Ejghgw-Hytgel Hx Patient Social History Tobacco type used: Cigarettes Smoking Status: Current Everyday Smoker Immunizations Up To Date Tetanus Booster (TDap): Unknown PED Vaccines UTD: Yes Seasonal Allergies Seasonal Allergies: No Past Medical History Surgeries: Yes Appendectomy Respiratory: Yes Asthma Cardiac: No Neurological: No Reproductive Disorders: No Genitourinary: No Gastrointestinal: No Musculoskeletal: No Endocrine: No HEENT: No Cancer: No Psychosocial: No Integumentary: No Blood Disorders: No Physical Exam Vital Signs - First Documented Capillary Refill : Less Than 3 Seconds Height: 5'10.00" Weight: 210lbs. oz. 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, no motor/sensory deficits, alert, normal mood/affect, oriented x 3 Skin: normal color, warm/dry Progress/Results/Core Measures Suspected Sepsis SIRS Temperature: Pulse: 79 Respiratory Rate: 20 Blood Pressure 144 /90 Mean: 108 Results/Orders Lab Results Laboratory Tests Test 01/14/21 22:38 Range/Units SARS-CoV-2 RNA (RT-PCR) Not Detected Not Detecte My Orders Orders - BRENT EPPS DO Dexamethasone Tablet (Decadron Tablet) (01/15/21 00:30) Rx-Ondansetron Po (Rx-Zofran Po) (01/15/21 00:29) Vital Signs/I&O 01/14/21 01/14/21 01/15/21 23:33 23:33 00:43 Temp 38.0 38.0 Pulse 79 90 Resp 20 20 B/P (MAP) 144/90 (108) 137/76 (108) Pulse Ox 98 97 O2 Delivery Room Air Room Air Room Air Capillary Refill : Less Than 3 Seconds Blood Pressure Mean: 108 Progress Note : Progress Note PLACED IN ISOLATION ROOM PPE WORN AT ALL TIMES COVID-19 TESTING PERFORMED NO COUGH NO DYSPNEA NO HYPOXIA ADVISED PT OF IMPORTANCE OF RE-TESTING FOR COVID-19 IN A COUPLE OF DAYS, HE HAS TYPICAL SYMPTOMS, AND WOULD BE A CANDIDATE FOR REGENERON BASED ON HISTORY OF ASTHMA AND BMI>25. DISCUSSED BENEFITS/RISKS OF REGENERON Departure Impression Primary Impression: COVID-LIKE ILLNESS Additional Impressions: Person under investigation for COVID-19 Asthma Disposition: 01 HOME, SELF-CARE Condition: Stable Departure-Patient Inst. Decision time for Depature: 00:25 Referrals: [facility] (PCP/Family) Primary Care Physician Patient Instructions: COVID-19 (DC), Preventing the Spread of an Infectious Disease, Asthma, Adult (DC) Add. Discharge Instructions: USE YOUR ALBUTEROL INHALER WITH SPACER AT ALL TIMES--2 PUFFS EVERY 4 HOURS NEEDED FOR BREATHING OVER THE COUNTER CLARITIN FOR CONGESTION AND DRAINAGE, AND MUCINEX DM FOR COUGH TYLENOL 1 GRAM/ MOTRIN 800 MG 4 TIMES A DAY FOR PAIN OR FEVER FOLLOW UP WITH [facility] IN 2-3 DAYS FOR RE-TESTING QUARANTINE FOR THE NEXT 2 WEEKS--NO ONE ENTERS OR LEAVES YOUR HOUSE FOR 2 WEEKS All discharge instructions reviewed with patient and/or family. Voiced understanding. Scripts Ondansetron (Ondansetron Odt) 4 Mg Tab.rapdis 4 MG PO Q4H for Nausea/Vomiting, #10 TAB Prov: BRENT EPSP DO 01/15/21 Dexamethasone (Decadron) 6 Mg Tablet 6 MG PO DAILY, #10 TAB Prov: BRENT EPPS DO 01/15/21 Work/School Note: Work Release Form Date Seen in the Emergency Department: Jan 14, 2021 Return to Work: Jan 29, 2021 BRENT EPPS DO Jan 15, 2021 00:33
[2021-01-15 00:43] VITALS: BP 137/76
== END 2021-01-15 00:46 | disposition home or self-care (01) ==
LOC: EDUNIT# 21:48 → ER 21:50
DX: J45.909 Unspecified asthma, uncomplicated (principal); F17.210 Nicotine dependence, cigarettes, uncomplicated; Z20.822 Contact with and (suspected) exposure to COVID-19; Z79.52 Long term (current) use of systemic steroids
CPT/HCPCS: 87636

== ENCOUNTER 2021-12-17 21:24 | Emergency (ER) | payer SELFPAY ==
[~2021-12-17] VITALS: Ht 177.8 cm; Wt 97.9 kg
[~2021-12-17 21:24] MED LIST changes: +DEXA6TAB6 PO
[2021-12-17 21:31] VITALS: BP 120/81
[2021-12-17] MEDS ORDERED: FAMOTIDINE 20 MG (PEPCID) TABLET PO ONE (21:45)
[2021-12-17] MEDS ORDERED: diphenhydrAMINE 25 MG TAB (BENADRYL) PO ONE (21:45)
[2021-12-17] MEDS ORDERED: methylPREDNISolone 125 MG (Solu-MEDROL) VIAL IM ONE (21:45)
--- NOTE | 2021-12-17 21:51 | ED Integumentary General ---
General Chief Complaint: Skin/Wound Problems Stated Complaint: RASH ON ARMS Nursing Triage Note: PT AMBULATORY TO ROOM. PT STATES HE WOKE UP THIS AM WITH A SMALL RED BUMP ON HIS LEFT ELBOW. PT STATES ABOUT AN HOUR AGO HE REALIZES HE WAS GETTING RED ROUND WELTS TO BOTH ARMS AND THE BUMP ON HIS ELBOW HAD GROWN TO "QUARTER SIZE." Source: patient Exam Limitations: no limitations History of Present Illness Date Seen by Provider: Dec 17, 2021 Time Seen by Provider: 21:47 Initial Comments Patient is a 21-year-old male who presents ED with a rash to his upper extremity . Started with a lesion to his left posterior elbow. Described as a circular red lesion. Increase in size appears as a welt with redness. Burning sensation to the elbow. Rashes spread to the right hand and left upper arm. He describes the rash as a welt. History of allergies. Denies of any runny nose, cough, recent change in medication. Takes Wellbutrin daily for smoking. Denies of any oral lesions, sore throat, fever, vomiting, diarrhea. Denies of any bug bite. No history of eczema or asthma. Allergies and Home Medications Allergies Coded Allergies: fluticasone (Verified Allergy, Unknown, 08/12/19) salmeterol (Verified Allergy, Unknown, 08/12/19) Patient Home Medication List Home Medication List Reviewed: Yes Albuterol Sulfate (Proair Respiclick) 90 Mcg Aer.pow.ba, 1-2 PUFF IH Q4H PRN for WHEEZING Prescribed by: NETO BARRIOS on 08/17/19 1513 Amoxicillin/Potassium Clav (Augmentin 875-125 Tablet) 1 Each Tablet, 1 EACH PO BID Prescribed by: NETO BARRIOS on 08/12/192022 Amoxicillin/Potassium Clav (Augmentin 875-125 Tablet) 1 Each Tablet, 1 EACH PO BID Prescribed by: NETO BARRIOS on 12/06/19 1429 Azithromycin (Azithromycin) 250 Mg Tablet, 250 MG PO UD Prescribed by: NETO BARRIOS on 02/07/19 1859 Dexamethasone (Decadron) 6 Mg Tablet, 6 MG PO DAILY Prescribed by: BRENT EPPS on 01/15/21 0033 Doxycycline Hyclate (Doxycycline Hyclate) 100 Mg Tablet, 100 MG PO BID WITH MEALS Prescribed by: JIMBO OSORIO on 08/22/20 0819 Ondansetron (Ondansetron Odt) 4 Mg Tab.rapdis, 4 MG PO Q8H PRN for nausea Prescribed by: JIMBO OSORIO on 08/22/20 0820 Ondansetron (Ondansetron Odt) 4 Mg Tab.rapdis, 4 MG PO Q4H Prescribed by: BRENT EPPS on 01/15/21 0033 Prednisone (Prednisone) 20 Mg Tab, 40 MG PO DAILY Prescribed by: NETO BARRIOS on 08/17/19 1539 Review of Systems Review of Systems Constitutional: No chills, No diaphoresis EENTM: No ear pain, No blurred vision, No double vision Respiratory: No cough, No dyspnea on exertion Cardiovascular: No see HPI Gastrointestinal: No abdominal pain, No diarrhea, No nausea, No vomiting Musculoskeletal: No back pain Skin: change in color, rash Psychiatric/Neurological: Denies Anxiety, Denies Depressed All Other Systems Reviewed Negative Unless Noted: Yes Past Cznvfwx-Wspnwy-Iftpts Hx Immunizations Up To Date Tetanus Booster (TDap): Unknown PED Vaccines UTD: Yes Seasonal Allergies Seasonal Allergies: No Past Medical History Surgeries: Yes Appendectomy Respiratory: Yes Asthma Cardiac: No Neurological: No Reproductive Disorders: No Genitourinary: No Gastrointestinal: No Musculoskeletal: No Endocrine: No HEENT: No Cancer: No Psychosocial: No Integumentary: No Blood Disorders: No Physical Exam Vital Signs Vital Signs - First Documented 12/17/21 21:31 Temp 36.8 Pulse 80 Resp 16 B/P (MAP) 120/81 (94) Pulse Ox 98 Capillary Refill : General Appearance: WD/WN, no apparent distress HEENT: PERRL/EOMI, normal ENT inspection, TMs normal, pharynx normal Neck: non-tender, full range of motion, supple, normal inspection Cardiovascular: regular rate, rhythm, no edema, no gallop Respiratory: chest non-tender, lungs clear, normal breath sounds, no respiratory distress, no accessory muscle use Gastrointestinal: normal bowel sounds, non tender, soft, no organomegaly Back: normal inspection, no CVA tenderness Extremities: normal range of motion, no calf tenderness 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 No pustules, circular crusting, excoriation) Progress/Results/Core Measures Results/Orders My Orders Orders - YURY SANABRIA Methylprednisolone Sod Succ (Solu-Medrol (12/17/21 21:45) Famotidine Tablet (Pepcid Tablet) (12/17/21 21:45) Diphenhydramine Tablet (Benadryl Tablet) (12/17/21 21:45) Vital Signs/I&O 12/17/21 21:31 Temp 36.8 Pulse 80 Resp 16 B/P (MAP) 120/81 (94) Pulse Ox 98 Blood Pressure Mean: 94 Departure Communication (PCP) Patient appears to have hives on his upper extremities. Appears to be more of allergic reaction. No cellulitic lesions. No circular crusting suggesting fungal. No function of mass or crusting suggesting abscess or bacterial etiology. No change in lotions, soaps or possible bug bite. Patient was given dose of IM Solu-Medrol and Pepcid and Benadryl. Continue with Benadryl and Pepcid at home. No difficulty breathing, sore throat or oral lesions. If any worsening symptoms to return back to ED for further evaluation. Patient agrees with plan of action. Impression Primary Impression: Rash Disposition: 01 HOME, SELF-CARE Condition: Stable Departure-Patient Inst. Decision time for Depature: 21:49 Referrals: ÁLVARO PARKS APRN (PCP/Family) Primary Care Physician Patient Instructions: Skin Rash (DC) Add. Discharge Instructions: Recommend continue with Benadryl and Pepcid at home 25 mg Benadryl every 6 hour and Pepcid 40 mg daily until rash resolves. If any worsening rash return back to ED or your primary care physician for further evaluation. All discharge instructions reviewed with patient and/or family. Voiced understanding. YURY SANABRIA Dec 17, 2021 21:51
== END 2021-12-17 22:29 | disposition home or self-care (01) ==
LOC: EDUNIT# 21:24 → ER 21:27
DX: R21 Rash and other nonspecific skin eruption (principal); Z28.310 Unvaccinated for COVID-19
CPT/HCPCS: 99284

== ENCOUNTER 2021-12-19 17:36 | Emergency (ER) | payer SELFPAY ==
[~2021-12-19] VITALS: Ht 177.8 cm; Wt 97.9 kg
[2021-12-19 17:45] VITALS: BP 122/83
[2021-12-19] MEDS ORDERED: methylPREDNISolone 125 MG (Solu-MEDROL) VIAL IM ONE (18:30)
[2021-12-19] MEDS ORDERED: diphenhydrAMINE 25 MG TAB (BENADRYL) PO ONE (18:30)
[2021-12-19] MEDS ORDERED: PRD50T PO (18:46)
--- NOTE | 2021-12-19 18:48 | ED Integumentary General ---
General Chief Complaint: Allergic Reaction Stated Complaint: HIVES, SWELLING IN HANDS, THROAT SWELLING Nursing Triage Note: WAS SEEN 2 DAYS AGO FOR HIVES, GIVEN STERROIDS, PEPCID AND BENADRYL THEN SENT HOME. TODAY HIVES HAVE RETURNED AND ARE NOTED TO HIS BILATERAL HANDS AND POSTERIOR ANKLES. LAS TDOSE OF BENADRYL WAS AT 1300 AND ZYRTEC AT 1645. STATES HE FEELS THERE IS A LUMP IN HIS THROAT. THIS PATIENT STATES HE HAS A HX OF ASTHMA. Source: patient Exam Limitations: no limitations History of Present Illness Date Seen by Provider: Dec 19, 2021 Time Seen by Provider: 18:43 Initial Comments Patient is a 21-year-old male who presents ED with allergic reaction. Patient states today he started having hives developed his hands, feet with scratchy throat. Patient was seen here 2 days ago had a rash to his left elbow and hands. It resolved after receiving IM Solu-Medrol, Pepcid and Benadryl here in the ER. Patient denies of any change in soaps, laundry detergents or current medication changes. Does take Wellbutrin. Denies of any shortness of breath, throat tightening, headache, dizziness. Reports itching. Did take Zyrtec and Benadryl today without much improvement. Allergies and Home Medications Allergies Coded Allergies: fluticasone (Verified Allergy, Unknown, 08/12/19) salmeterol (Verified Allergy, Unknown, 08/12/19) Patient Home Medication List Home Medication List Reviewed: Yes Albuterol Sulfate (Proair Respiclick) 90 Mcg Aer.pow.ba, 1-2 PUFF IH Q4H PRN for WHEEZING Prescribed by: NETO BARRIOS on 08/17/19 1513 Amoxicillin/Potassium Clav (Augmentin 875-125 Tablet) 1 Each Tablet, 1 EACH PO BID Prescribed by: NETO BARRIOS on 08/12/192022 Amoxicillin/Potassium Clav (Augmentin 875-125 Tablet) 1 Each Tablet, 1 EACH PO BID Prescribed by: NETO BARRIOS on 12/06/19 1429 Azithromycin (Azithromycin) 250 Mg Tablet, 250 MG PO UD Prescribed by: NETO BARRIOS on 02/07/19 1859 Dexamethasone (Decadron) 6 Mg Tablet, 6 MG PO DAILY Prescribed by: BRENT EPPS on 01/15/21 0033 Doxycycline Hyclate (Doxycycline Hyclate) 100 Mg Tablet, 100 MG PO BID WITH MEALS Prescribed by: JIMBO OSORIO on 08/22/20 0819 Ondansetron (Ondansetron Odt) 4 Mg Tab.rapdis, 4 MG PO Q8H PRN for nausea Prescribed by: JIMBO OSORIO on 08/22/20 0820 Ondansetron (Ondansetron Odt) 4 Mg Tab.rapdis, 4 MG PO Q4H Prescribed by: BRENT EPPS on 01/15/21 0033 Prednisone (Prednisone) 20 Mg Tab, 40 MG PO DAILY Prescribed by: NETO BARRIOS on 08/17/19 1539 Review of Systems Review of Systems Constitutional: No chills, No diaphoresis, No malaise, No weakness EENTM: No hearing loss, No ear pain, No blurred vision Respiratory: No cough, No dyspnea on exertion Cardiovascular: No chest pain Gastrointestinal: No abdominal pain Genitourinary: No decreased output, No discharge, No frequency, No hematuria Musculoskeletal: No back pain, No gout Skin: change in color; No change in hair/nails; pruritus, rash Psychiatric/Neurological: Anxiety; Denies Depressed All Other Systems Reviewed Negative Unless Noted: Yes Past Zjldpvw-Suhcjy-Fpielz Hx Patient Social History Tobacco Use?: Yes Tobacco type used: Cigarettes Smoking Status: Current Everyday Smoker Use of E-Cig and/or Vaping dev: No Substance use?: No Alcohol Use?: Yes Alcohol Frequency: Rarely Pt feels they are or have been: No Immunizations Up To Date Tetanus Booster (TDap): Unknown PED Vaccines UTD: Yes Influenza Vaccine Up-to-Date: No; Not Current First/Initial COVID19 Vaccinat: DECLINED Seasonal Allergies Seasonal Allergies: No Past Medical History Surgeries: Yes Appendectomy Respiratory: Yes Asthma Cardiac: No Neurological: No Reproductive Disorders: No Genitourinary: No Gastrointestinal: No Musculoskeletal: No Endocrine: No HEENT: No Cancer: No Psychosocial: No Integumentary: No Blood Disorders: No Physical Exam Vital Signs Vital Signs - First Documented 12/19/21 17:45 Temp 37.2 Pulse 80 Resp 16 B/P (MAP) 122/83 (96) Pulse Ox 98 O2 Delivery Room Air Capillary Refill : Less Than 3 Seconds General Appearance: WD/WN, no apparent distress HEENT: PERRL/EOMI, normal ENT inspection, TMs normal, pharynx normal Neck: non-tender, full range of motion, supple, normal inspection Cardiovascular: regular rate, rhythm, no edema, no gallop, no JVD Respiratory: chest non-tender, lungs clear, normal breath sounds Gastrointestinal: normal bowel sounds, non tender, soft, no organomegaly Back: normal inspection, no CVA tenderness Extremities: normal range of motion, non-tender, no pedal edema Neurologic/Psychiatric: antisqueak worker II-XII nml as tested, no motor/sensory deficits, alert, oriented x 3 Skin: rash (Erythematous macular papular rash to the upper and lower extremities, left upper arm. Edematous without pustules, vesicles) Progress/Results/Core Measures Results/Orders My Orders Orders - YURY SANABRIA Methylprednisolone Sod Succ (Solu-Medrol (12/19/21 18:30) Diphenhydramine Tablet (Benadryl Tablet) (12/19/21 18:30) Medications Given in ED Current Medications Medications Dose Ordered Sig/Annie Route Start Time Stop Time Status Last Admin Dose Admin Diphenhydramine HCl 25 mg ONCE ONCE PO 12/19/21 18:30 12/19/21 18:31 DC 12/19/21 18:36 25 MG Methylprednisolone Sodium Succinate 125 mg ONCE ONCE IM 12/19/21 18:30 12/19/21 18:31 DC 12/19/21 18:37 125 MG Vital Signs/I&O 12/19/21 17:45 Temp 37.2 Pulse 80 Resp 16 B/P (MAP) 122/83 (96) Pulse Ox 98 O2 Delivery Room Air Blood Pressure Mean: 96 Departure Communication (PCP) Patient presents ED with allergic reaction. Edematous erythematous maculopapular rash. Was seen here few days ago improvement with IM Solu-Medrol. He states was not sure if he could take oral steroids. He tolerated IM Solu-Medrol. Oropharynx patent. No stridor. Vital signs stable. Was given a dose of IM Solu-Medrol, and Benadryl. Will discharge short burst steroids. Continue with Benadryl at home. Continue worsening symptoms return back to ED for further action. Outpatient follow-up with primary care physician in 2 to 3 days Impression Primary Impression: Rash Disposition: HOME, SELF-CARE Condition: Stable Departure-Patient Inst. Decision time for Depature: 18:45 Referrals: ÁLVARO PARKS APRN (PCP/Family) Primary Care Physician Patient Instructions: Skin Rash (DC) Scripts Prednisone (Prednisone) 50 Mg Tab 50 MG PO DAILY, #5 TAB Prov: YURY SANABRIA 12/19/21 YURY SANABRIA Dec 19, 2021 18:48
== END 2021-12-19 19:11 | disposition home or self-care (01) ==
LOC: EDUNIT# 17:36 → ER 17:38
DX: T78.40XA Allergy, unspecified, initial encounter (principal); F17.210 Nicotine dependence, cigarettes, uncomplicated; Z28.310 Unvaccinated for COVID-19
CPT/HCPCS: 99281